=== PATIENT | female | born 1985 | race Two or more races ===

== ENCOUNTER 2023-12-31 13:07 | Emergency (ER) | payer OTHER, SELFPAY ==
--- NOTE | ~2023-12-31 | US_ITS ---
EXAMINATION: US PELVIS CLINICAL INFORMATION: Pain left lower quadrant COMPARISON: None available. TECHNIQUE: Ultrasound of the pelvis is performed using both transabdominal and transvaginal transducers along with Doppler. Transvaginal imaging is performed due to inadequate visualization transabdominally. FINDINGS: Uterus: The uterus is anteverted and measures 6 x 3 x 3.4 cm. The double wall endometrial thickness is 0.7 mm. The uterus is smooth in contour and has normal myometrial echogenicity. No visible fibroid. Adnexa: Both ovaries are visualized. There is normal color flow to the adnexa. There is no active torsion. There is no pelvic ascites or fluid collection. Right ovary measures 2 mL in volume and left ovary measures 1 mL in volume. Trace physiologic free fluid. US/US pelvic ovarian doppler IMPRESSION: Unremarkable pelvic ultrasound. No evidence of any adnexal mass or active torsion. Electronically signed by: Gorge Austin MD 12/31/2023 03:40 PM [facility]
--- NOTE | ~2023-12-31 | US_ITS ---
EXAMINATION: US PELVIS CLINICAL INFORMATION: Pain left lower quadrant COMPARISON: None available. TECHNIQUE: Ultrasound of the pelvis is performed using both transabdominal and transvaginal transducers along with Doppler. Transvaginal imaging is performed due to inadequate visualization transabdominally. FINDINGS: Uterus: The uterus is anteverted and measures 6 x 3 x 3.4 cm. The double wall endometrial thickness is 0.7 mm. The uterus is smooth in contour and has normal myometrial echogenicity. No visible fibroid. Adnexa: Both ovaries are visualized. There is normal color flow to the adnexa. There is no active torsion. There is no pelvic ascites or fluid collection. Right ovary measures 2 mL in volume and left ovary measures 1 mL in volume. Trace physiologic free fluid. US/US pelvic and transvaginal IMPRESSION: Unremarkable pelvic ultrasound. No evidence of any adnexal mass or active torsion. Electronically signed by: Gorge Austin MD 12/31/2023 03:40 PM [facility]
[2023-12-31 13:29] VITALS: BP 147/80; PULSE 91; RESP 16; TEMP 36.3; O2SAT 99; BMI 34.4
--- NOTE | 2023-12-31 13:30 | ED.GENADULT ---
HPI - General Adult General Chief complaint: Abdominal Pain Stated complaint: quest cyst Time Seen by Provider: 12/31/23 19:09 Related Data Allergies Allergy/AdvReac Type Severity Reaction Status Date / Time Penicillins Allergy Rash Verified 12/31/23 13:34 REPLACED BY [facility] Social History Social History Advance Directives: No Advance Directives Information Provided: No Do you have a plan to hurt others: No Plan Physical Exam ED Vital Signs: Vital Signs - 24 hr 12/31/23 13:29 12/31/23 19:49 Temperature 97.4 F 98.1 F Pulse Rate 91 108 H Respiratory Rate 16 20 Blood Pressure 147/80 H 126/87 Pulse Oximetry 99 99 Oxygen Delivery Method Room Air Room Air BMI result Body Mass Index 34.4 Course Course Course Narrative: This is a rapid medical exam performed by Chet Solomon NP: Additional HPI, ROS, PE not included below will be deferred to primary provider. Patient is a 38-year-old female presenting to the ED with complaint of left lower abdominal pain which she describes as a twisting sensation. Pain has been going on for several years and seems to worsen around menses. Yesterday was diaphoretic, had to change shirt twice, difficulty sleeping/urinating. Just started period. Plan: labs, ua, u/s Medical Decision Making Lab Data 12/31/23 14:07 12/31/23 14:07 Labs: Lab Results 12/31/23 12/31/23 12/31/23 Range/Units 14:07 19:25 20:00 WBC 13.8 H (4.8-10.8) X10*3/uL RBC 4.84 (4.20-5.50) X10*6/uL Hgb 13.9 (12.0-16.0) g/dl Hct 40.6 (37.0-47.0) % MCV 83.9 (80.0-98.0) fL MCH 28.7 (27.0-33.0) pg MCHC 34.2 (31.0-35.0) g/dl RDW 13.5 (11.0-16.0) % Plt Count 300 (160-400) X10*3/uL MPV 10.6 (9.4-12.3) fL Immature Gran % (Auto) 0.3 (0.0-0.4) % Neut % (Auto) 73.5 H (45-73) % Lymph % (Auto) 19.3 L (20-40) % [place] % (Auto) 5.8 (2-11) % Eos % (Auto) 0.7 (0-4) % Baso % (Auto) 0.4 (0-2) % Lymph # (Auto) 2.7 (1.2-4.9) X10*3/uL [place] # (Auto) 0.8 (0.1-1.2) X10*3/uL Eos # (Auto) 0.1 (0.0-0.4) X10*3/uL Baso # (Auto) 0.1 (0.0-0.2) X10*3/uL Abs Immat Gran (auto) 0.04 H (0.00-0.03) X10*3/uL Absolute Neuts (auto) 10.2 H (2.0-8.3) x10*3/uL Absolute Nucleated RBC 0.000 (0.0-0.012) X10*3/uL Nucleated RBC % (auto) 0.0 (0.0-0.2) /100WBC Sodium 136 (135-145) mmol/L Potassium 3.4 (3.3-5.1) mmol/L Chloride 105 (96-108) mmol/L Carbon Dioxide 22 (22-29) mmol/L Anion Gap 12 (12-20) BUN 11 (9-16) mg/dL Creatinine 0.83 (0.5-1.4) mg/dL Estim Creat Clear Calc 98.3 Estimated GFR > 60 Random Glucose 135 H (60-115) mg/dL Calcium 9.3 (8.4-10.2) mg/dL Total Bilirubin 1.5 H (0.0-1.0) mg/dL AST 17 (5-31) U/L ALT 12 (0-31) U/L Alkaline Phosphatase 89 (39-117) U/L Total Protein 8.1 H (6.5-8.0) g/dL Albumin 4.3 (3.5-5.0) g/dL TSH 1.62 (0.32-4.0) uIU/mL Beta HCG, Quant < 2 mIU/mL Urine Color Yellow Urine Appearance Clear Urine pH 6.0 (5.0-9.0) Ur Specific Reeder 1.025 (1.005-1.025) Urine Protein 30 (1+) H (Neg-Trace) mg/dL Urine Glucose (UA) Negative (Negative) mg/dL Urine Ketones Negative (Negative) mg/dL Urine Blood Large (3+) H (Negative) Urine Nitrite Negative (Negative) Ur Leukocyte Esterase Small (1+) H (Negative) Urine RBC >20 H (0-2) /HPF Urine WBC 0-5 (0-5) /HPF Ur Squamous Epith Cells 3-5 (0-2) /HPF Urine Bacteria Trace (None Seen) Hyaline Casts 0-2 (0-2) /LPF Influenza Type A (PCR) NEGATIVE (Negative) Influenza Type B (PCR) NEGATIVE (Negative) RSV RNA Qual (PCR) NEGATIVE (Negative) SARS-CoV-2 RNA (RT-PCR) NEGATIVE (Negative) Discharge Plan Discharge Clinical Impression: Menstrual cramp Patient Disposition: Home, Self-Care Instructions: Dysmenorrhea (ED) Referrals: Evens Jeffries DO [Primary Care Provider] - 01/03/24 Print Language: Liberian
[2023-12-31 14:12] LABS: MANUAL DIFF FLAG NO
[2023-12-31 14:13] LABS: Basophils Absolute Auto 0.1 X10*3/uL (0.0-0.2); Basophils Percent Auto 0.4 % (0-2); Eosinophils Absolute Auto 0.1 X10*3/uL (0.0-0.4); Eosinophils Percent Auto 0.7 % (0-4); Hematocrit 40.6 % (37.0-47.0); Hemoglobin 13.9 g/dl (12.0-16.0); Imm Gran Abs Auto 0.04 X10*3/uL (0.00-0.03); Imm Gran Pct Auto 0.3 % (0.0-0.4); Lymphocytes Absolute Auto 2.7 X10*3/uL (1.2-4.9); Lymphocytes Percent Auto 19.3 % (20-40); Mean Corpuscular HGB Conc 34.2 g/dl (31.0-35.0); Mean Corpuscular Hemoglobin 28.7 pg (27.0-33.0); Mean Corpuscular Volume 83.9 fL (80.0-98.0); Mean Platelet Volume 10.6 fL (9.4-12.3); Monocytes Absolute Auto 0.8 X10*3/uL (0.1-1.2); Monocytes Percent Auto 5.8 % (2-11); Neutrophils Absolute Auto 10.2 x10*3/uL (2.0-8.3); Neutrophils Percent Auto 73.5 % (45-73); Platelet Count 300 X10*3/uL (160-400); Red Blood Count 4.84 X10*6/uL (4.20-5.50); Red Cell Distribution Width 13.5 % (11.0-16.0); White Blood Count 13.8 X10*3/uL (4.8-10.8)
[2023-12-31 14:45] LABS: Alanine Aminotransferase 12 U/L (0-31); Albumin Level 4.3 g/dL (3.5-5.0); Alkaline Phosphatase 89 U/L (39-117); Anion Gap 12 (12-20); Aspartate Amino Transferase 17 U/L (5-31); Bilirubin Total 1.5 mg/dL (0.0-1.0); Blood Urea Nitrogen 11 mg/dL (9-16); Calcium 9.3 mg/dL (8.4-10.2); Carbon Dioxide 22 mmol/L (22-29); Chloride 105 mmol/L (96-108); Creatinine Clr Calc Pharmacy 98.3; Estimated Glomerular Filt Rate > 60; Glucose Random 135 mg/dL (60-115); Potassium 3.4 mmol/L (3.3-5.1); Sodium 136 mmol/L (135-145); Total Protein 8.1 g/dL (6.5-8.0)
[2023-12-31 14:49] LABS: HCG Quantitative < 2 mIU/mL
--- NOTE | 2023-12-31 19:33 | PC.NURSE ---
Assumed care of pt at 1915. Urine sample collected and sent down to lab.
[2023-12-31 19:35] LABS: Appearance Urine Clear; Color Urine Yellow; Glucose Urine UA Negative (Negative); Leukocyte Esterase Urine Small (1+) (Negative); Nitrite Urine Negative (Negative); Specific Gravity - Urine 1.025 (1.005-1.025); UMIC TRIGGER UACC YES; Urine Blood Large (3+) (Negative); Urine Ketones Negative (Negative); Urine Protein 30 (1+) mg/dL (Neg-Trace)
[2023-12-31 19:49] VITALS: BP 126/87; PULSE 108; RESP 20; TEMP 36.7; O2SAT 99
[2023-12-31 19:53] LABS: Bacteria Urine Trace (None Seen); Hyaline Casts Urine 0-2 /LPF (0-2); RBC Urine >20 /HPF (0-2); UACC Culture Trigger YES; WBC Urine 0-5 /HPF (0-5)
[2023-12-31 20:04] LABS: Thyroid Stimulating Hormone 1.62 uIU/mL (0.32-4.0)
--- OUTSIDE RECORDS SUMMARY | 2023-12-31 20:12 | XMS_ITS | Continuity of Care Document ---
Author Organization [facility] Address [address] [place] [address]- Care Team Providers Care Sales Engineering Manager Name Role Phone Lela Nails MD Primary Care Physician Encounter [facility] [place] Date(s): 10/13/20 - 10/20/20 [facility] [address] [place] [address]- Encounter Diagnosis Cough in adult patient(Discharge Diagnosis) - 10/13/20 Attending Physician: Lela Nails MD Allergies, Adverse Reactions, Alerts Substance Reaction Severity Status penicillin 1 Active 1rash Immunizations Given and Recorded Vaccine Date Status Refusal Reason SARS-CoV-2 (COVID-19) mRNA BNT-162b2 vac 07/15/20 Given SARS-CoV-2 (COVID-19) mRNA BNT-162b2 vac 06/24/20 Given influenza virus vaccine, inactivated 12/18/19 Oj rded Medications Azithromycin 5 Day Dose Pack 250 mg oral tablet 1 pack/packet, By Mouth, Once, # 6 tablet, 0 Refills, Soft Stop, 09/18/20 14:39:00 EDT, [facility], [facility], Partial fill upon patient request if the prescription is for a schedule II opioid drug., 163, cm, 09/18/20 14:12:00 EDT, Height, 85.... Start Date: 09/18/20 Status: Ordered benzonatate 100 mg oral capsule 1 capsule = 100 mg, By Mouth, 3 times a day, for 10 days, # 30 capsule, 0 Refills, Acute 10/23/20 8:09:00 EDT, 10/13/20 8:09:00 EDT, Capsule, [facility], Partial fill upon patient request if the prescription is for a schedule II opioid drug... Start Date: 10/13/20 Stop Date: 10/23/20 Status: Ordered buPROPion 150 mg/24 hours (XL) oral tablet, extended release 1 tablet = 150 mg, By Mouth, Every 24 hours, # 90 tablet, 1 Refills, Maintenance, 10/13/20 7:42:00 EDT, ER Tablet, [id number], 1 tablet By Mouth Every 24 hours,x90 days, 163, cm, 09/18/20 14:12:00 EDT, Height, 85.2, kg, 09/18/20 14:12:00 ED... Start Date: 10/13/20 Stop Date: 04/11/21 Status: Ordered Diflucan 150 mg oral tablet 1 tablet = 150 mg, By Mouth, Once, May repeat in 3 days if continued symptoms, # 2 tablet, 0 Refills, Soft Stop, 08/17/20 19:02:00 EDT, Tablet, [facility]/pharmacy #[id number], Partial fill upon patient request if the prescription is for a schedule II opioid drug.... Start Date: 08/17/20 Status: Ordered Vital-D oral tablet 1 tablet, By Mouth, Daily, # 100 tablet, 0 Refills, Maintenance, 09/14/19 9:40:00 EDT, Tablet Start Date: 09/14/19 Status: Ordered ZyrTEC 10 mg oral tablet 1 tablet = 10 mg, By Mouth, Daily, # 30 tablet, 0 Refills, Maintenance, 05/25/19 8:51:00 EDT Start Date: 05/25/19 Status: Ordered Problem List Condition Effective Dates Status Health Status Inform ant ADHD (attention deficit hype ractivity disorder), inattentive type(Confirmed) Active Constipation(Confirmed) Active Vitamin D insufficiency(Confirmed) Active Health care maintenance(Confirmed) Active Diagnosis Diagnosis Type Effective Dates Health Status Cl inical Service Informant Cough in adult patient Discharge Diagnosis 10/13/20 Vital Signs Most recent to oldest [Reference Range]: 1 Height 163 cm (10/13/20 7:38 AM) Social History Social History Type Response Smoking Status Never (less than 100 in lifetime) entered on: 05/25/19 Sex
--- OUTSIDE RECORDS SUMMARY | 2023-12-31 20:12 | XMS_ITS | Continuity of Care Document ---
Author Organization [facility] Address [address] [place] [address]- Care Team Providers Care Perfumer Name Role Phone Evens Jeffries DO Primary Care Physician [phone] Encounter [facility] [place] Date(s): 06/07/22 - 07/07/22 [facility] [address] [place] [address]- Allergies, Adverse Reactions, Alerts Substance Reaction Severity Status penicillin 1 Active 1rash Immunizations Given and Recorded Vaccine Date Status Refusal Reason influenza virus vaccine, inactivated 12/15/21 Oj rded influenza virus vaccine, inactivated 03/01/21 Oj rded influenza virus vaccine, inactivated 12/18/19 Oj rded SARS-CoV-2 (COVID-19) mRNA BNT-162b2 vac 07/15/20 Given SARS-CoV-2 (COVID-19) mRNA BNT-162b2 vac 06/24/20 Given Medications buPROPion 300 mg/24 hours (XL) oral tablet, extended release See Instructions, TAKE 1 TABLET BY MOUTH ONCE DAILY- TAKE WITH 150MG TABLET FOR A DAILY DOSE OF 450MG, # 30 tablet, 0 Refills, Maintenance, 07/01/22 21:21:00 EDT, [id number], 163, cm, 06/19/22 8:51:00 EDT, Height, 85.2, kg, 09/18/20 14:12:0... Start Date: 07/01/22 Status: Ordered Enskyce 0.15 mg-0.03 mg oral tablet 1 tablet, By Mouth, Daily, # 28 tablet, 0 Refills, Maintenance, 09/28/21 11:15:00 EDT, Tablet, Partial fill upon patient request if the prescription is for a schedule II opioid drug. Start Date: 09/28/21 Status: Ordered escitalopram 10 mg oral tablet 1 tablet = 10 mg, By Mouth, Daily, # 90 tablet, 0 Refills, Maintenance, 06/19/22 9:14:00 EDT, Tablet, [facility], Partial fill upon patient request if the prescription is for a schedule IIopioid drug., 163, cm, 06/19/22 8:51:00 EDT, Height... Start Date: 06/19/22 Status: Ordered Vital-D oral tablet 1 tablet, By Mouth, Daily, # 100 tablet, 0 Refills, Maintenance, 09/14/19 9:40:00 EDT, Tablet Start Date: 09/14/19 Status: Ordered ZyrTEC 10 mg oral tablet 1 tablet = 10 mg, By Mouth, Daily, # 30 tablet, 0 Refills, Maintenance, 05/25/19 8:51:00 EDT Start Date: 05/25/19 Status: Ordered Problem List Condition Confirmation Course Effective Dates Status H ealth Status Informant Allergic rhinitis Confirmed 04/24/20 Active Anxiety Confirmed Active ADHD (attention deficit hyperactivity disorder), inattentive type Confirmed Active Constipation Confirmed Active Vitamin D insufficiency Confirmed Active Gastroesophageal reflux disease Confirmed Active Irritable bowel syndrome characterized by constipation Confirmed Active Mixed anxiety and depressive disorder Confirmed 04/24/20 Active Obese class I Confirmed Active Health care maintenance Confirmed Active Recurrent genital herpes simplex Confirmed 04/24/20 Active MDD (major depressive disorder), recurrent episode, moderate Confirmed Active Seasonal allergy Confirmed Active 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
--- OUTSIDE RECORDS SUMMARY | 2023-12-31 20:12 | XMS_ITS | Continuity of Care Document ---
Author Organization [facility] Address [address] [place] [address]- Care Team Providers Care Portable Track Line Marker Name Role Phone Evens Jeffries DO Primary Care Physician Encounter [facility] [place] Date(s): 07/14/23 - 08/13/23 [facility] [address] [place] [address]- Allergies, Adverse Reactions, Alerts Substance Reaction Severity Status penicillin 1 Active 1rash Immunizations Given and Recorded Vaccine Date Status Refusal Reason tetanus/diphtheria/pertussis, acel(Tdap) 07/25/23 Given influenza virus vaccine, inactivated 12/15/21 Oj rded influenza virus vaccine, inactivated 03/01/21 Oj rded influenza virus vaccine, inactivated 12/18/19 Oj rded SARS-CoV-2 (COVID-19) mRNA BNT-162b2 vac 07/15/20 Given SARS-CoV-2 (COVID-19) mRNA BNT-162b2 vac 06/24/20 Given Medications Enskyce 0.15 mg-0.03 mg oral tablet 1 tablet, By Mouth, Daily, # 28 tablet, 0 Refills, Maintenance, 09/28/21 11:15:00 EDT, Tablet, Partial fill upon patient request if the prescription is for a schedule II opioid drug. Start Date: 09/28/21 Status: Ordered ZyrTEC 10 mg oral tablet 1 tablet = 10 mg, By Mouth, Daily, # 30 tablet, 0 Refills, Maintenance, 05/25/19 8:51:00 EDT Start Date: 05/25/19 Status: Ordered Problem List Condition Confirmation Course Effective Dates Status H ealth Status Informant Allergic rhinitis Confirmed 04/24/20 Active Gastroesophageal reflux disease Confirmed Active Body aches Confirmed Active Irritable bowel syndrome characterized by constipation Confirmed Active Obese class I Confirmed Active Recurrent genital herpes simplex Confirmed 04/24/20 Active MDD (major depressive disorder), recurrent episode, moderate Confirmed Active Seasonal allergy Confirmed 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 Social History Social History Type Response Smoking Status Never (less than 100 in lifetime) entered on: 05/25/19 Sex Patient Care team information Care Team Personnel Name: Evens Jeffries DO Position: S Physician - Primary Care Member Role: PCP Address: Address: [address] [place] [id number]- [place] Care Team Related Persons Name: TERESSA EDWARDS Address: home [address] [place] [address]
--- OUTSIDE RECORDS SUMMARY | 2023-12-31 20:12 | XMS_ITS | Continuity of Care Document ---
Author Organization [facility] Address [address] [place] [address]- Care Team Providers Care Awake Overnight Monitor Name Role Phone Evens Jeffries DO Primary Care Physician Encounter [facility] [place] Date(s): 08/06/23 - 09/05/23 [facility] [address] [place] [address]- Allergies, Adverse Reactions, Alerts Substance Reaction Severity [...] Primary Care Member Role: PCP Address: Address: [address] [place] [address]- [place] Care Team Related Persons Name: TERESSA EDWARDS Address: home [address] [place] [address]
--- OUTSIDE RECORDS SUMMARY | 2023-12-31 20:12 | XMS_ITS | Continuity of Care Document ---
Author Organization [facility] Address [address] [place] [address]- Care Team Providers Care Assistant Chief Train Dispatcher Name Role Phone Lela Nails MD Primary Care Physician Encounter [facility] Date(s): 10/13/20 - 11/12/20 [facility] [address] [place] [address]- Attending Physician: Admtr, Luc8 Admitting Physician: AdmtrNila Referring Physician: Admtr, Ar8 Allergies, Adverse Reactions, Alerts Substance Reaction Severity [...] Refills, Soft Stop, 09/18/20 14:39:00 EDT, Tablet, [facility], Partial fill upon patient request if the prescription is for a schedule II opioid drug., 163, cm, 09/18/20 14:12:00 EDT, Height, 85.... Start Date: 09/18/20 Status: Ordered buPROPion 150 mg/24 hours (XL) oral tablet, extended release 1 tablet = 150 mg, By Mouth, Every 24 hours, # 90 tablet, 1 Refills, Maintenance, 10/13/20 7:42:00 EDT, ER Tablet, [facility], 1 tablet By Mouth Every 24 hours,x90 days, 163, cm, 09/18/20 14:12:00 EDT, Height, 85.2, kg, 09/18/20 14:12:00 ED... Start Date: 10/13/20 Stop Date: 04/11/21 Status: Ordered Diflucan 150 mg oral tablet 1 tablet = 150 mg, By Mouth, Once, May repeat in 3 days if continued symptoms, # 2 tablet, 0 Refills, Soft Stop, 08/17/20 19:02:00 EDT, Tablet, [facility]/pharmacy #[id number], Partial fill upon patient request if [...] D insufficiency(Confirmed) Active Health care maintenance(Confirmed) Active Social History Social History Type Response Smoking Status Never (less than 100 in lifetime) entered on: 05/25/19 Sex
--- OUTSIDE RECORDS SUMMARY | 2023-12-31 20:12 | XMS_ITS | Continuity of Care Document ---
Author Organization [facility] Address [address] [place] [address]- Care Team Providers Care Public Relations Account Executive Name Role Phone Lela Nails MD Primary Care Physician Encounter [facility] [place] Date(s): 02/03/20 - 03/04/20 [facility] [address] [place] [address]- Allergies, Adverse Reactions, Alerts Substance Reaction Severity Status penicillin 1 Active 1rash Medications buPROPion 150 mg/24 hours (XL) oral tablet, extended release 1 tablet = 150 mg, By Mouth, Every 24 hours, # 90 tablet, 1 Refills, Maintenance, 02/15/20 11:25:00EST, ER Tablet, [facility], 1 tablet By Mouth Every 24 hours,x90 days Start Date: 02/15/20 Stop Date: 08/13/20 Status: Ordered Vital-D oral tablet 1 tablet, [...]
--- OUTSIDE RECORDS SUMMARY | 2023-12-31 20:12 | XMS_ITS | Continuity of Care Document ---
Author Organization [facility] Address [address] [place] [address]- Care Team Providers Care Intellectual Property Lawyer Name Role Phone Evens Jeffries DO Primary Care Physician Encounter [facility] Date(s): 07/17/22 - 08/16/22 [facility] [address] [place] [address]- Attending Physician: Nila Tiwari Admitting Physician: Nila Tiwari Referring Physician: AdmtrNila Allergies, Adverse Reactions, Alerts Substance Reaction Severity [...] hours (XL) oral tablet, extended release 1 tablet, By Mouth, Daily, # 30 tablet, 0 Refills, Maintenance, 08/07/22 14:13:00 EDT, [facility], 164.8, cm, 07/17/22 13:47:00 EDT, Height, 85.2, kg, 09/18/20 14:12:00 EDT, Dry Weight Start Date: 08/07/22 Status: Ordered Enskyce 0.15 mg-0.03 mg oral [...] 0 Refills, Maintenance, 06/19/22 9:14:00 EDT, Tablet, [facility], Partial fill upon patient request [...] Primary Care Member Role: PCP Address: Address: [address] [place] [address]- Care Team Related Persons Name: TERESSA EDWARDS Address: home [address] [place] [address]
--- OUTSIDE RECORDS SUMMARY | 2023-12-31 20:12 | XMS_ITS | Continuity of Care Document ---
Author Organization [facility] Address [address] [place] [address]- Care Team Providers Care Radiology Scheduler Name Role Phone Jaqui DEAL, Lela Naqvi Primary Care Physician Encounter [facility] [place] [place] Date(s): 11/29/20 - 12/29/20 [facility] [address] [place] [address]- Allergies, Adverse Reactions, Alerts Substance Reaction Severity [...] Refills, Soft Stop, 09/18/20 14:39:00 EDT, Tablet, [facility], Partial fill upon patient request if the prescription is for a schedule II opioid drug., 163, cm, 09/18/20 14:12:00 EDT, Height, 85.... Start Date: 09/18/20 Status: Ordered Bactrim DS 800 mg-160 mg oral tablet 1 tablet, By Mouth, 2 times a day, for 3 days, # 6 tablet, 0 Refills, Acute 01/01/21 15:41:00 EST, 12/29/20 15:41:00 EDT, [facility], Partial fill upon patient request if the prescription is for a schedule II opioid drug., 1 tablet By Mouth... Start Date: 12/29/20 Stop Date: 01/01/21 Status: Ordered buPROPion 150 mg/24 hours (XL) oral tablet, extended release 1 tablet = 150 mg, By Mouth, Every 24 hours, # 90 tablet, 3 Refills, Maintenance, 12/01/20 14:23:00EDT, ER Tablet, [facility], 1 tablet By Mouth Every 24 hours,x90 days, 163, cm, 12/01/2112:49:00 EDT, Height, 85.2, kg, 09/18/20 14:12:00 E... Start Date: 12/01/20 Stop Date: 11/26/21 Status: Ordered Diflucan 150 mg oral tablet 1 tablet = 150 mg, By Mouth, Once, May repeat in 3 days if continued symptoms, # 2 tablet, 0 Refills, Soft Stop, 08/17/20 19:02:00 EDT, Tablet, [facility]/pharmacy #[id number], Partial fill upon patient request if the prescription is for a schedule II opioid drug.... Start Date: 08/17/20 Status: Ordered Junel 03/16 oral tablet 1 tablet, By Mouth, Daily, 0 Refills, Maintenance, 12/01/20 13:51:00 EDT, Partial fill upon patientrequest if the prescription is for a schedule II opioid drug. Start Date: 12/01/20 Status: Ordered Vital-D oral tablet 1 tablet, By Mouth, Daily, # 100 tablet, 0 Refills, Maintenance, 09/14/19 9:40:00 EDT, Tablet Start Date: 09/14/19 Status: Ordered ZyrTEC 10 mg oral tablet 1 tablet = 10 mg, By Mouth, Daily, # 30 tablet, 0 Refills, Maintenance, 05/25/19 8:51:00 EDT Start Date: 05/25/19 Status: Ordered Problem List Condition Effective Dates Status Health Status Inform ant Allergic rhinitis(Confirmed) 04/24/20 Active ADHD (attention deficit hype ractivity disorder), inattentive type(Confirmed) Active Constipation(Confirmed) Active Vitamin D insufficiency(Confirmed) Active Mixed anxiety and depressive disorder(Confirmed) 04/24/20 Active Health care maintenance(Confirmed) Active Recurrent genital herpes simplex(Confirmed) 04/24/20 Active Social History Social History Type Response Smoking Status Never (less than 100 in lifetime) entered on: 05/25/19 Sex
--- OUTSIDE RECORDS SUMMARY | 2023-12-31 20:12 | XMS_ITS | Continuity of Care Document ---
Author Organization [facility] Address [address] [place] [address]- Care Team Providers Care Emergency Room Orderly Name Role Phone Lela Nails MD Primary Care Physician [place] [id number] Date(s): 08/17/20 - 09/16/20 [facility] [address] [place] [address]- Attending Physician: AdmNila soni Admitting Physician: Admtr, Luc8 Referring Physician: Admtr, Ar8 Allergies, Adverse Reactions, Alerts Substance Reaction Severity Status penicillin 1 Active 1rash Immunizations Given and Recorded Vaccine Date Status Refusal Reason SARS-CoV-2 (COVID-19) mRNA BNT-162b2 vac 07/15/20 Given SARS-CoV-2 (COVID-19) mRNA BNT-162b2 vac 06/24/20 Given Medications buPROPion 150 mg/24 hours (XL) oral tablet, extended release 1 tablet = 150 mg, By Mouth, Every 24 hours, # 90 tablet, 1 Refills, Maintenance, 02/15/20 11:25:00EST, ER Tablet, [facility], 1 tablet By Mouth Every 24 hours,x90 days Start Date: 02/15/20 Stop Date: 08/13/20 Status: Ordered Diflucan 150 mg oral tablet 1 tablet = 150 mg, By Mouth, Once, May repeat in 3 days if continued symptoms, # 2 tablet, 0 Refills, Soft Stop, 08/17/20 19:02:00 EDT, Tablet, [facility]/pharmacy #[id number], Partial fill upon patient request if the [...]
--- OUTSIDE RECORDS SUMMARY | 2023-12-31 20:12 | XMS_ITS | Continuity of Care Document ---
Author Organization [facility] Address [address] [place] [address]- Care Team Providers Care Roll Up Operator Name Role Phone Lela Nails MD Primary Care Physician [place] [facility] 05/[place]20 - 06/19/20 [facility] [address] [place] [address]- Allergies, Adverse Reactions, Alerts Substance Reaction Severity Status penicillin 1 Active 1rash Medications buPROPion 150 mg/24 hours (XL) oral tablet, extended release 1 tablet = 150 mg, By Mouth, Every 24 hours, # 90 tablet, 1 Refills, Maintenance, 02/15/20 11:25:00EST, ER Tablet, [facility], 1 tablet By [...]
--- OUTSIDE RECORDS SUMMARY | 2023-12-31 20:12 | XMS_ITS | Continuity of Care Document ---
Author Organization [facility] Address [address] [place] [address]- Care Team Providers Care Bung Dropper Name Role Phone Jaqui DEAL, Lela Naqvi Primary Care Physician Encounter [facility] [place] Date(s): 10/13/19 - 11/12/19 [facility] [address] [place] [address]- [facility] Allergies, Adverse Reactions, Alerts Substance Reaction Severity Status penicillin 1 Active 1rash Medications buPROPion 150 mg/24 hours (XL) oral tablet, extended release 1 tablet = 150 mg, By Mouth, Every 24 hours, # 90 tablet, 1 Refills, Maintenance, 05/25/19 8:49:00 EDT, ER Tablet, [facility], 1 tablet By Mouth Every 24 hours,x90 days Start Date: 05/25/19 Stop Date: 11/21/19 Status: Ordered Vital-D oral tablet 1 tablet, [...]
--- OUTSIDE RECORDS SUMMARY | 2023-12-31 20:12 | XMS_ITS | Continuity of Care Document ---
Author Organization [facility] Address [address] [place] [address]- Care Team Providers Care Access Coordinator Name Role Phone Lela Nails MD Primary Care Physician En[place] [facility] [place] Date(s[place] 12/29/20 - 01/28/21 [facility] [address] [place] [address]- Allergies, Adverse Reactions, Alerts Substance Reaction Severity [...] Refills, Soft Stop, 09/18/20 14:39:00 EDT, Tablet, [id number], Partial fill upon patient request if the prescription is for a schedule II opioid drug., 163, cm, 09/18/20 14:12:00 EDT, Height, 85.... Start Date: 09/18/20 Status: Ordered buPROPion 150 mg/24 hours (XL) oral tablet, extended release 1 tablet = 150 mg, By Mouth, Every 24 hours, # 90 tablet, 3 Refills, Maintenance, 12/01/20 14:23:00EDT, ER Tablet, [facility]278, 1 tablet By Mouth Every 24 hours,x90 days, 163, cm, 12/01/2112:49:00 EDT, Height, 85.2, kg, 09/18/20 14:12:00 E... Start Date: 12/01/20 Stop Date: 11/26/21 Status: Ordered Diflucan 150 mg oral tablet 1 tablet = 150 mg, By Mouth, Once, May repeat in 3 days if continued symptoms, # 2 tablet, 0 Refills, Soft Stop, 08/17/20 19:02:00 EDT, Tablet, [facility]/pharmacy #[id number], Partial fill upon patient request [...]
--- OUTSIDE RECORDS SUMMARY | 2023-12-31 20:12 | XMS_ITS | Continuity of Care Document ---
Author Organization [facility] Address [address] [place] [address]- Care Team Providers Care Pooling Operator Name Role Phone Anjel KWOK, Shakira Herndon Primary Care Physician Encounter [facility] Date(s): 11/15/21 - 12/15/21 [facility] [address] [place] [address]- Allergies, Adverse Reactions, Alerts Substance Reaction Severity Status penicillin 1 Active 1rash Immunizations Given and Recorded Vaccine Date Status Refusal Reason influenza virus vaccine, inactivated 03/01/21 Oj rded influenza virus vaccine, inactivated 12/18/19 Oj rded SARS-CoV-2 (COVID-19) mRNA BNT-162b2 vac 07/15/20 Given SARS-CoV-2 (COVID-19) mRNA BNT-162b2 vac 06/24/20 Given Medications buPROPion 300 mg/24 hours (XL) oral tablet, extended release 1 tablet = 300 mg, By Mouth, Daily, take with 150mg for total of 450mg a day, # 30 tablet, 1 Refills, Maintenance, 11/03/21 16:25:00 EDT, ER Tablet, [id number], Partial fill upon patient request if the prescription is for a schedule II opio... Start Date: 11/03/21 Status: Ordered Enskyce 0.15 mg-0.03 mg oral tablet 1 tablet, By Mouth, Daily, # 28 tablet, 0 Refills, Maintenance, 09/28/21 11:15:00 EDT, Tablet, Partial fill upon patient request if the prescription is for a schedule II opioid drug. Start Date: 09/28/21 Status: Ordered escitalopram 5 mg oral tablet 1 tablet = 5 mg, By Mouth, Daily, # 30 tablet, 1 Refills, Maintenance, 11/23/21 15:16:00 EDT, Tablet, [facility], Partial fill upon patient request if the prescription is for a schedule IIopioid drug., 163, cm, 11/23/21 14:06:00 EDT, Dotty... Start Date: 11/23/21 Status: Ordered Vital-D oral tablet 1 tablet, [...] on: 05/25/19 Sex Patient Care team information Personnel Name: Anjel KWOK, Shakira Herndon Address: Address: [address] [place] [address] [place], [place] [address]
--- OUTSIDE RECORDS SUMMARY | 2023-12-31 20:12 | XMS_ITS | Continuity of Care Document ---
Author Organization [facility] Address [address] [place] [address]- Care Team Providers Care Information Director Name Role Phone Lanre DUNCAN MD, Vincent Lindsay Primary Care Physician [phone] [place] [facility] [place] - 05/17/19 [facility] [address] [place] [address]- [facility] Attending Physician: Nila Tiwari Admitting Physician: Nila Tiwari Referring Physician: AdmtrNila Allergies, Adverse Reactions, Alerts Substance Reaction Severity Status NKA Active Medications ibuprofen 600 mg oral tablet 1 tablet = 600 mg, By Mouth, 4 times a day, PRN Pain, # 12 tablet, 0 Refills, Maintenance, Tablet Start Date: 07/21/09 Status: Ordered Tylox 500 mg-5 mg oral capsule 1 capsule, By Mouth, Every 4 hours, PRN Pain, # 12 tablet, 0 Refills, Maintenance, Capsule Start Date: 07/21/09 Status: Ordered
--- OUTSIDE RECORDS SUMMARY | 2023-12-31 20:12 | XMS_ITS | Continuity of Care Document ---
Author Organization [facility] Address [address] [place] [address]- Care Team Providers Care Button Tufter Name Role Phone Jaqui DEAL, Lela Naqvi Primary Care Physician En[facility] [place] Date(s): 02/16/20 - 03/17/20 [facility] [address] [place] [address]- Allergies, Adverse Reactions, Alerts Substance Reaction Severity Status penicillin 1 Active 1rash Medications buPROPion 150 mg/24 hours (XL) oral tablet, extended release 1 tablet = 150 mg, By Mouth, Every 24 hours, # 90 tablet, 1 Refills, Maintenance, 02/15/20 11:25:00EST, ER Tablet, [facility]278, 1 tablet By [...]
--- OUTSIDE RECORDS SUMMARY | 2023-12-31 20:12 | XMS_ITS | Continuity of Care Document ---
Author Organization [facility] Address [address] [place] [address]- Care Team Providers Care Concrete Engineering Technician Name Role Phone Lela Nails MD Primary Care Physician En[place] [facility] [place] Date(s): 12/29/20 - 01/28/21 [facility] [address] [place] [address]- Attending Physician: Admzachariah, Nila Admitting Physician: AdmtrNila Referring Physician: Admtr, Ar8 [...] Refills, Soft Stop, 09/18/20 14:39:00 EDT, Tablet, [facility], Partial fill upon patient request if the prescription is for a schedule II opioid drug., 163, cm, 09/18/20 14:12:00 EDT, Height, 85.... Start Date: 09/18/20 Status: Ordered buPROPion 150 mg/24 hours (XL) oral tablet, extended release 1 tablet = 150 mg, By Mouth, Every 24 hours, # 90 tablet, 3 Refills, Maintenance, 12/01/20 14:23:00EDT, ER Tablet, [facility], 1 tablet By Mouth Every 24 hours,x90 days, 163, cm, 12/01/2112:49:00 EDT, Height, 85.2, kg, 09/18/20 14:12:00 E... Start Date: 12/01/20 Stop Date: 11/26/21 Status: Ordered Diflucan 150 mg oral tablet 1 tablet = 150 mg, By Mouth, Once, May repeat in 3 days if continued symptoms, # 2 tablet, 0 Refills, Soft Stop, 08/17/20 19:02:00 EDT, Tablet, [facility]/pharmacy #[id number], Partial fill upon patient request if [...]
--- OUTSIDE RECORDS SUMMARY | 2023-12-31 20:12 | XMS_ITS | Continuity of Care Document ---
Author Organization [facility] Address [address] [place] [address]- Care Team Providers Care Celery Tier Name Role Phone Anjel KWOK, Shakira Primary Care Physician [phone] [facility] [place] Date(s): 02/27/22 - 03/29/22 [facility] [address] [place] [address]- Allergies, Adverse Reactions, Alerts Substance Reaction Severity [...] day, # 30 tablet, 1 Refills, Maintenance, 01/16/22 16:40:00 EST, ER Tablet, [id number], Partial fill upon patient request if the prescription is for a schedule II opio... Start Date: 01/16/22 Status: Ordered Enskyce 0.15 mg-0.03 mg oral [...] 1 Refills, Maintenance, 11/23/21 15:16:00 EDT, Tablet, [facility], Partial fill upon patient request if the prescription is for a schedule IIopioid drug., 163, cm, 11/23/21 14:06:00 EDT, [place]... Start Date: 11/23/21 Status: Ordered Vital-D oral [...] Care team information Care Team Personnel Name: Shakira Hobbs NP Position: [facility]O Associate Professional Member Role: PCP Address: Address: [address] [place] [address] [place] [address]- Care Team Related Persons Name: TERESSA EDWARDS Address: home [address] [place] [address]
--- OUTSIDE RECORDS SUMMARY | 2023-12-31 20:12 | XMS_ITS | Continuity of Care Document ---
Author Organization [facility] Address [address] [place] [address]- Care Team Providers Care Tool Grinding Machine Operator Name Role Phone Evens Jeffries DO Primary Care Physician [phone] En[place] [facility] [place] Date(s): 10/22/23 - 11/21/23 [facility] [address] [place] [address]- Allergies, Adverse Reactions, Alerts Substance Reaction Severity Status penicillin 1 Active 1rash Immunizations Given and Recorded Vaccine Date Status Refusal Reason tetanus/diphtheria/pertussis, acel(Tdap) 07/25/23 Given Meningococcal Conjugate Vaccine 06/11/23 Recorded influenza virus vaccine, inactivated 12/15/21 Oj rded influenza virus vaccine, inactivated 03/01/21 Oj rded influenza virus vaccine, inactivated 12/18/19 Oj rded SARS-CoV-2 (COVID-19) mRNA BNT-162b2 vac 07/15/20 Given SARS-CoV-2 (COVID-19) mRNA BNT-162b2 vac 06/24/20 Given Hepatitis A Vaccine (oldterm) 06/10/06 Recorded Typhoid Vaccine, Inactivated 05/22/06 Recorded Measles/Mumps/Rubella Virus Vaccine 10/15/01 Recor ded Measles/Mumps/Rubella Virus Vaccine 02/10/85 Recor ded Hepatitis B Vaccine (old term) 07/26/97 Recorded Hepatitis B Vaccine (old term) 08/25/96 Recorded Hepatitis B Vaccine (old term) 07/26/96 Recorded Medications Enskyce 0.15 mg-0.03 mg oral tablet [...] Primary Care Member Role: PCP Address: Address: [address] [place] [address]- Care Team Related Persons Name: TERESSA EDWARDS Address: home [address] [place] [address]
--- OUTSIDE RECORDS SUMMARY | 2023-12-31 20:12 | XMS_ITS | Continuity of Care Document ---
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/19 Vitamin D insufficiency(Discharge Diagnosis) - 05/25/19 Constipation(Discharge Diagnosis) - 05/25/19 Attending Physician: Lela Nails MD Allergies, Adverse Reactions, Alerts Substance Reaction Severity Status penicillin 1 Active 1rash Medications buPROPion 150 mg/24 hours (XL) oral tablet, extended release 1 tablet = 150 mg, By Mouth, Every 24 hours, # 90 tablet, 1 Refills, Maintenance, 05/25/19 8:49:00 EDT, ER Tablet, [facility] 5270, 1 tablet By Mouth Every 24 hours,x90 days Start Date: 05/25/19 Stop Date: 11/21/19 Status: Ordered ZyrTEC 10 mg oral tablet [...] Diagnosis Diagnosis Type Effective Dates Health Status Clinical Service Informant Health care maintenance Discharge Diagnosis 05/25/19 ADHD (attention deficit hyperactivity disorder), inattentive type Discharge Diagnosis 05/25/19 Vitamin D insufficiency Discharge Diagnosis 05/25/19 Constipation Discharge Diagnosis 05/25/19 Social History Social History Type Response Smoking Status Never (less than 100 in lifetime) entered on: 05/25/19 Sex
--- OUTSIDE RECORDS SUMMARY | 2023-12-31 20:12 | XMS_ITS | Continuity of Care Document ---
Author Organization [facility] Address [address] [place] [address]- Care Team Providers Care Part Time Name Role Phone Leal Nails MD Primary Care Physician En[place] [facility] [place] Date(s): 12/29/20 - 01/05/21 [facility] [address] [place] [address]- Encounter Diagnosis UTI symptoms(Discharge Diagnosis) - 12/29/20 Attending Physician: Anjel KWOK, Shakira Naqvi Allergies, Adverse Reactions, Alerts Substance Reaction Severity [...] Refills, Soft Stop, 09/18/20 14:39:00 EDT, Tablet, [facility], Partial fill upon patient request if the prescription is for a schedule II opioid drug., 163, cm, 09/18/20 14:12:00 EDT, Height, 85.... Start Date: 09/18/20 Status: Ordered buPROPion 150 mg/24 hours (XL) oral tablet, extended release 1 tablet = 150 mg, By Mouth, Every 24 hours, # 90 tablet, 3 Refills, Maintenance, 12/01/20 14:23:00EDT, ER Tablet, [facility], 1 tablet By Mouth Every 24 hours,x90 days, 163, cm, 12/01/2112:49:00 EDT, Height, 85.2, kg, 09/18/20 14:12:00 E... Start Date: 12/01/20 Stop Date: 11/26/21 Status: Ordered Diflucan 150 mg oral tablet 1 tablet = 150 mg, By Mouth, Once, May repeat in 3 days if continued symptoms, # 2 tablet, 0 Refills, Soft Stop, 08/17/20 19:02:00 EDT, Tablet, [facility]/pharmacy #[id number], Partial fill upon patient request [...] Active Recurrent genital herpes simplex(Confirmed) 04/24/20 Active Diagnosis Diagnosis Type Effective Dates Health Status Cl inical Service Informant UTI symptoms Discharge Diagnosis 12/29/20 Social History Social History Type Response Smoking Status Never (less than 100 in lifetime) entered on: 05/25/19 Sex
--- OUTSIDE RECORDS SUMMARY | 2023-12-31 20:12 | XMS_ITS | Continuity of Care Document ---
Author Organization [facility] Address [address] [place] [address]- Care Team Providers Care White Sidewall Tire Buffer Name Role Phone Jaqui DEAL, Lela Naqvi Primary Care Physician En[place] [facility] [place] Date(s): 09/24/19 - 10/24/19 [facility] [address] [place] [address]- [facility] Allergies, Adverse Reactions, Alerts Substance Reaction Severity Status penicillin 1 Active 1rash Medications buPROPion 150 mg/24 hours (XL) oral tablet, extended release 1 tablet = 150 mg, By Mouth, Every 24 hours, # 90 tablet, 1 Refills, Maintenance, 05/25/19 8:49:00 EDT, ER Tablet, [facility] [...]
--- OUTSIDE RECORDS SUMMARY | 2023-12-31 20:12 | XMS_ITS | Continuity of Care Document ---
Author Organization [facility] Address [address] [place] [address]- Care Team Providers Care Kettle Tender Name Role Phone Evens Jeffries DO Primary Care Physician [place] [facility] [place] 04/26/22 - 05/26/[address] [facility] [address] [place] [address]- Allergies, Adverse Reactions, Alerts Substance Reaction Severity [...] day, # 30 tablet, 1 Refills, Maintenance, 04/24/22 13:36:00 EST, ER Tablet, [facility]60, Partial fill upon patient request if the prescription is for a schedule II opio... Start Date: 04/24/22 Status: Ordered Enskyce 0.15 mg-0.03 mg oral [...] 1 Refills, Maintenance, 11/23/21 15:16:00 EDT, Tablet, [facility] 5278, Partial fill upon patient [...] Care Physician Member Role: PCP Address: Address: [address] [place] [address] Care Team Related Persons Name: TERESSA EDWARDS Address: home [address] [place] [address]
--- OUTSIDE RECORDS SUMMARY | 2023-12-31 20:12 | XMS_ITS | Continuity of Care Document ---
Author Organization [facility] Address [address] [place] [address]- Care Team Providers Care Community Development Officer Name Role Phone Lela Nails MD Primary Care Physician Encounter [facility] Date(s): 02/04/20 - 02/11/20 [facility] [address] [place] [address]- Encounter Diagnosis COVID-19 virus detected(Discharge Diagnosis) - 02/04/20 Attending Physician: Michaela Reich MD Allergies, Adverse Reactions, Alerts Substance Reaction Severity Status penicillin 1 Active 1rash Medications buPROPion 150 mg/24 hours (XL) oral tablet, extended release 1 tablet = 150 mg, By Mouth, Every 24 hours, # 90 tablet, 1 Refills, Maintenance, 05/25/19 8:49:00 EDT, ER Tablet, [facility] 9503, 1 tablet By Mouth Every 24 hours,x90 [...] Dates Health Status Cl inical Service Informant COVID-19 virus detected Discharge Diagnosis 02/04/20 Social History Social History Type Response Smoking Status Never (less than 100 in lifetime) entered on: 05/25/19 Sex
--- OUTSIDE RECORDS SUMMARY | 2023-12-31 20:12 | XMS_ITS | Continuity of Care Document ---
Author Organization [facility] Address [address] [place] [address]- Care Team Providers Care Chemist Enzymes Name Role Phone Lela Nails MD Primary Care Physician En[id number] Date(s): 09/18/20 - 10/18/20 [facility] [address] [place] [address]- Attending Physician: AdmNila soni Admitting Physician: Admtr, Ar8 Referring Physician: Admtr, Ar8 Allergies, Adverse Reactions, [...] Refills, Soft Stop, 09/18/20 14:39:00 EDT, Tablet, [facility], Partial fill upon patient request if the prescription is for a schedule II opioid drug., 163, cm, 09/18/20 14:12:00 EDT, Height, 85.... Start Date: 09/18/20 Status: Ordered benzonatate 100 mg oral capsule 1 capsule = 100 mg, By Mouth, 3 times a day, for 10 days, # 30 capsule, 0 Refills, Acute 10/23/20 8:09:00 EDT, 10/13/20 8:09:00 EDT, Capsule, [facility], Partial fill upon patient request [...] Refills, Soft Stop, 08/17/20 19:02:00 EDT, Tablet, [facility]/pharmacy #[id number], Partial fill upon patient request if [...]
--- OUTSIDE RECORDS SUMMARY | 2023-12-31 20:12 | XMS_ITS | Continuity of Care Document ---
Author Organization [facility] Address [address] [place] [address]- Care Team Providers Care Perinatal Tech Name Role Phone Evens Jeffries DO Primary Care Physician [phone] [place] [facility] [place] 07/12/23 - 08/11/23 [facility] [address] [place] [address]- Allergies, Adverse Reactions, Alerts Substance Reaction Severity [...] Primary Care Member Role: PCP Address: Address: [address] [place] [address]- [place] Care Team Related Persons Name: TERESSA EDWARDS Address: home [address] [place] [address]
--- OUTSIDE RECORDS SUMMARY | 2023-12-31 20:13 | XMS_ITS | Continuity of Care Document ---
Author Organization [facility] Address [address] [place] [address]- Care Team Providers Care Imitation Marble Mechanic Name Role Phone Evens Jeffries DO Primary Care Physician [phone] [place] [facility] [place] 10/29/23 - 11/28/23 [facility] [address] [place] [address]- Allergies, Adverse Reactions, Alerts Substance Reaction Severity [...] Primary Care Member Role: PCP Address: Address: [address] [place] [address]- Care Team Related Persons Name: TERESSA EDWARDS Address: home [address] [place] [address]
--- OUTSIDE RECORDS SUMMARY | 2023-12-31 20:13 | XMS_ITS | Continuity of Care Document ---
Author Organization [facility] Address [address] [place] [address]- Care Team Providers Care Demurrage Agent Name Role Phone Evens Jeffries DO Primary Care Physician En[place] [facility] [place] Date(s): 07/26/23 - 08/25/23 [facility] [address] [place] [address]- Attending Physician: Admtr, Luc8 Admitting Physician: AdmtrLuc8 Referring Physician: Admtr, Ar8 Allergies, Adverse Reactions, [...] Team Personnel Name: Evens Jeffries DO Position: [facility] Physician - Primary Care Member Role: PCP Address: Address: [address] [place] [address]- Care Team Related Persons Name: TERESSA EDWARDS Address: home [address] [place] [address]
--- OUTSIDE RECORDS SUMMARY | 2023-12-31 20:13 | XMS_ITS | Continuity of Care Document ---
Author Organization [facility] Address [address] [place] [address]- Care Team Providers Care Manager Discovery Name Role Phone Lela Nails MD Primary Care Physician [place] [facility] [id number] Date(s): 09/18/20 - 09/25/20 [facility] [address] [place] [address]- Encounter Diagnosis Acute sinusitis(Discharge Diagnosis) - 09/18/20 Attending Physician: Camilo Hitchcock MD Referring Physician: Lela Nails MD Allergies, Adverse Reactions, Alerts Substance Reaction Severity Status penicillin 1 Active 1rash Immunizations Given and Recorded Vaccine Date Status Refusal Reason SARS-CoV-2 (COVID-19) mRNA BNT-162b2 vac 07/15/20 Given SARS-CoV-2 (COVID-19) mRNA BNT-162b2 vac 06/24/20 Given Medications Azithromycin 5 Day Dose Pack 250 mg oral tablet 1 pack/packet, By Mouth, Once, # 6 tablet, 0 Refills, Soft Stop, 09/18/20 14:39:00 EDT, Tablet, [facility], Partial fill upon patient request if the prescription is for a schedule II opioid drug., 163, cm, 09/18/20 14:12:00 EDT, Height, 85.... Start Date: 09/18/20 Status: Ordered buPROPion 150 mg/24 hours (XL) oral tablet, extended release 1 tablet = 150 mg, By Mouth, Every 24 hours, # 90 tablet, 1 Refills, Maintenance, 02/15/20 11:25:00EST, ER Tablet, [facility], 1 tablet By Mouth Every 24 hours,x90 days Start Date: 02/15/20 Stop Date: 08/13/20 Status: Ordered Diflucan 150 mg oral tablet 1 tablet = 150 mg, By Mouth, Once, May repeat in 3 days if continued symptoms, # 2 tablet, 0 Refills, Soft Stop, 08/17/20 19:02:00 EDT, Tablet, [facility]/pharmacy #[id number], Partial fill upon patient request if the [...] Dates Health Status Cl inical Service Informant Acute sinusitis Discharge Diagnosis 09/18/20 Vital Signs Most recent to oldest [Reference Range]: 1 Height 163 cm (09/18/20 2:12 PM) Weight 85.2 kg (09/18/20 2:12 PM) Oxygen Saturation [94-100 %] 100 % (09/18/20 2:12 PM) Pulse Rate [55-90 bpm] 77 bpm (09/18/20 2:12 PM) Body Mass Index [18.5-24.99] 32.07 *>HHI* (09/18/20 2:12 PM) Blood Pressure [90-138/55-84 mm Hg] 119/ 83mm Hg (09/18/20 2:12 PM) Temperature [96.8-100.4 DegF] 98.3 DegF (09/18/20 2:12 PM) Mode of Delivery (Oxygen) Room air (09/18/20 2:12 PM) Blood pressure sites Arm, right (09/18/20 2:12 PM) Temperature Route Temporal (09/18/20 2:12 PM) Dry Weight 85.2 kg (09/18/20 2:12 PM) Weight Obtained Via Standing scale (09/18/20 2:12 PM) Dry Weight Obtained Via Standing scale (09/18/20 2:12 PM) Social History Social History Type Response Smoking Status Never (less than 100 in lifetime) entered on: 05/25/19 Sex
--- OUTSIDE RECORDS SUMMARY | 2023-12-31 20:13 | XMS_ITS | Continuity of Care Document ---
Author Organization [facility] Address [address] [place] [address]- Care Team Providers Care Carpet Sewing Machine Operator Name Role Phone Anjel KWOK, Shakira Naqvi Primary Care Physician [place] [facility] [place] 07/05/21 - 08/04/21 [facility] [address] [place] [address]- Allergies, Adverse Reactions, Alerts Substance Reaction Severity [...] Refills, Soft Stop, 09/18/20 14:39:00 EDT, Tablet, [facility], Partial fill upon patient request if the prescription is for a schedule II opioid drug., 163, cm, 09/18/20 14:12:00 EDT, Height, 85.... Start Date: 09/18/20 Status: Ordered buPROPion 150 mg/24 hours (XL) oral tablet, extended release 1 tablet = 150 mg, By Mouth, Every 24 hours, # 90 tablet, 3 Refills, Maintenance, 12/01/20 14:23:00EDT, ER Tablet, [facility], 1 tablet By Mouth Every 24 hours,x90 days, 163, cm, 12/01/2112:49:00 EDT, Height, 85.2, kg, 09/18/20 14:12:00 E... Start Date: 12/01/20 Stop Date: 11/26/21 Status: Ordered Diflucan 150 mg oral tablet 1 tablet = 150 mg, By Mouth, Once, May repeat in 3 days if continued symptoms, # 2 tablet, 0 Refills, Soft Stop, 08/17/20 19:02:00 EDT, Tablet, [facility]/pharmacy #[id number], Partial fill upon patient request [...]
--- OUTSIDE RECORDS SUMMARY | 2023-12-31 20:13 | XMS_ITS | Continuity of Care Document ---
Author Organization [facility] Address [address] [place] [address]- Care Team Providers Care Business Broker Name Role Phone Anjel KWOK, Shakira Naqvi Primary Care Physician [phone] [place] [facility] [place]21 - 08/27/21 [facility] [address] [place] [address]- Allergies, Adverse Reactions, Alerts Substance Reaction Severity [...] Refills, Soft Stop, 09/18/20 14:39:00 EDT, Tablet, [facility], Partial fill upon patient request if the prescription is for a schedule II opioid drug., 163, cm, 09/18/20 14:12:00 EDT, Height, 85.... Start Date: 09/18/20 Status: Ordered buPROPion 150 mg/24 hours (XL) oral tablet, extended release 1 tablet = 150 mg, By Mouth, Every 24 hours, # 90 tablet, 3 Refills, Maintenance, 12/01/20 14:23:00EDT, ER Tablet, [facility], 1 tablet By Mouth Every 24 hours,x90 days, 163, cm, 12/01/2112:49:00 EDT, Height, 85.2, kg, 09/18/20 14:12:00 E... Start Date: 12/01/20 Stop Date: 11/26/21 Status: Ordered Diflucan 150 mg oral tablet 1 tablet = 150 mg, By Mouth, Once, May repeat in 3 days if continued symptoms, # 2 tablet, 0 Refills, Soft Stop, 08/17/20 19:02:00 EDT, Tablet, [facility]/pharmacy #[id number], Partial fill upon patient request [...]
--- OUTSIDE RECORDS SUMMARY | 2023-12-31 20:13 | XMS_ITS | Continuity of Care Document ---
Author Organization [facility] Address [address] [place] [address]- Care Team Providers Care Coffee Farmer Name Role Phone Lela Nails MD Primary Care Physician [place] [facility] [place] 11[place]/20 - 12/30/20 [facility] [address] [place] [address]- Allergies, Adverse Reactions, Alerts Substance Reaction Severity [...] Refills, Soft Stop, 09/18/20 14:39:00 EDT, Tablet, [facility], Partial fill upon patient request if the prescription is for a schedule II opioid drug., 163, cm, 09/18/20 14:12:00 EDT, Height, 85.... Start Date: 09/18/20 Status: Ordered Bactrim DS 800 mg-160 mg oral tablet 1 tablet, By Mouth, 2 times a day, for 3 days, # 6 tablet, 0 Refills, Acute 01/01/21 15:41:00 EST, 12/29/20 15:41:00 EDT, [facility], Partial fill upon patient request if the prescription is for a schedule II opioid drug., 1 tablet By Mouth... Start Date: 12/29/20 Stop Date: 01/01/21 Status: Ordered buPROPion 150 mg/24 hours (XL) oral tablet, extended release 1 tablet = 150 mg, By Mouth, Every 24 hours, # 90 tablet, 3 Refills, Maintenance, 12/01/20 14:23:00EDT, ER Tablet, [facility], 1 tablet By Mouth Every 24 hours,x90 days, 163, cm, 12/01/2112:49:00 EDT, Height, 85.2, kg, 09/18/20 14:12:00 E... Start Date: 12/01/20 Stop Date: 11/26/21 Status: Ordered Diflucan 150 mg oral tablet 1 tablet = 150 mg, By Mouth, Once, May repeat in 3 days if continued symptoms, # 2 tablet, 0 Refills, Soft Stop, 08/17/20 19:02:00 EDT, Tablet, [facility]/pharmacy #[id number], Partial fill upon patient request [...]
--- OUTSIDE RECORDS SUMMARY | 2023-12-31 20:13 | XMS_ITS | Continuity of Care Document ---
Author Organization [facility] Address [address] [place] [address]- Care Team Providers Care Writer Name Role Phone Jaqui DEAL, Lela Naqvi Primary Care Physician [place] [facility] [place] 10/14/19 [facility] [address] [place] [address]- [facility] Attending Physician: Nila Tiwari Admitting Physician: AdmtrNila Referring Physician: Admtr, ArFei Allergies, Adverse Reactions, Alerts Substance Reaction Severity Status penicillin 1 Active 1rash Medications buPROPion 150 mg/24 hours (XL) oral tablet, extended release 1 tablet = 150 mg, By Mouth, Every 24 hours, # 90 tablet, 1 Refills, Maintenance, 05/25/19 8:49:00 EDT, ER Tablet, [facility], 1 tablet By Mouth Every 24 hours,x90 [...]
--- OUTSIDE RECORDS SUMMARY | 2023-12-31 20:13 | XMS_ITS | Continuity of Care Document ---
Author Organization [facility] Address [address] [place] [address]- Care Team Providers Care Supervising Film Or Videotape Editor Name Role Phone Evens Jeffries DO Primary Care Physician En[place] [facility] [place] Date(s): 03/28/23 - 03/28/[address] [address]- Attending Physician: Nitza KWOK, Yoli Rossi Allergies, Adverse Reactions, Alerts Substance Reaction Severity [...] (XL) oral tablet, extended release See Instructions, Take 1 tablet by mouth once daily, # 30 tablet, 0 Refills, Maintenance, 10/23/22 11:25:00 EDT, [facility], 164.8, cm, 07/17/22 13:47:00 EDT, Height Start Date: 10/23/22 Status: Ordered buPROPion 300 mg/24 hours (XL) oral tablet, extended release 1 tablet, By Mouth, Daily, # 30 tablet, 0 Refills, Maintenance, 08/07/22 14:13:00 EDT, [facility], 164.8, cm, 07/17/22 13:47:00 EDT, [...] 0 Refills, Maintenance, 06/19/22 9:14:00 EDT, Tablet, [facility], Partial fill upon patient [...] Primary Care Member Role: PCP Address: Address: [address] [place] [address]- Care Team Related Persons Name: TERESSA EDWARDS Address: home [address] [place] [address]
--- OUTSIDE RECORDS SUMMARY | 2023-12-31 20:13 | XMS_ITS | Continuity of Care Document ---
Author Organization [facility] ter Address [address] [place] [address]- Care Team Providers Care Swiss Machinist Name Role Phone Evens Jeffries DO Primary Care Physician [phone] [place] [facility] [place]/23 - 03/28/[address] [address]- Attending Physician: Nitza KWOK, Yoli Rossi Allergies, [...] tablet, 0 Refills, Maintenance, 10/23/22 11:25:00 EDT, [facility], 164.8, cm, 07/17/22 13:47:00 EDT, Height Start Date: 10/23/22 Status: Ordered buPROPion 300 mg/24 hours (XL) oral tablet, extended release 1 tablet, By Mouth, Daily, # 30 tablet, 0 Refills, Maintenance, 08/07/22 14:13:00 EDT, [facility], 164.8, cm, 07/17/22 13:47:00 EDT, [...] 0 Refills, Maintenance, 06/19/22 9:14:00 EDT, Tablet, [facility], Partial fill upon patient [...] Primary Care Member Role: PCP Address: Address: [address] [place] [address]- Care Team Related Persons Name: TERESSA EDWARDS Address: home [address] [place] [address]
--- OUTSIDE RECORDS SUMMARY | 2023-12-31 20:13 | XMS_ITS | Continuity of Care Document ---
Author Organization [facility] Address [address] [place] [address]- Care Team Providers Care Civil Rights Attorney Name Role Phone Anjel KWOK, Shakira Primary Care Physician [phone] [place] [facility] [place] - 02/14/22 [facility] [address] [place] [address]- Allergies, Adverse Reactions, Alerts Substance Reaction Severity [...] Refills, Maintenance, 01/16/22 16:40:00 EST, ER Tablet, [facility], Partial fill upon patient request if the [...] 1 Refills, Maintenance, 11/23/21 15:16:00 EDT, Tablet, [facility], Partial fill upon patient [...] Team Personnel Name: Shakira Hobbs NP Position: [facility] PCO Associate Professional Member Role: PCP Address: Address: [address] [place] [address] [place] [address]- Care Team Related Persons Name: TERESSA EDWARDS Address: home [address] [place] [address]
--- OUTSIDE RECORDS SUMMARY | 2023-12-31 20:13 | XMS_ITS | Continuity of Care Document ---
Author Organization [facility] Address [address] [place] [address]- Care Team Providers Care Manager Of Photography Name Role Phone Evens Jeffries DO Primary Care Physician [place] [facility] [place]14[place]22 - 07/14/22 [facility] [address] [place] [address]- Allergies, Adverse Reactions, Alerts Substance Reaction Severity [...] tablet, 0 Refills, Maintenance, 07/01/22 21:21:00 EDT, [facility], 163, cm, 06/19/22 8:51:00 [...] 0 Refills, Maintenance, 06/19/22 9:14:00 EDT, Tablet, [facility], Partial fill upon patient [...] Care Physician Member Role: PCP Address: Address: [address] [place] [address]- Care Team Related Persons Name: EDWARDS TERESSA Address: home [address] [place] [address]
--- OUTSIDE RECORDS SUMMARY | 2023-12-31 20:13 | XMS_ITS | Continuity of Care Document ---
Author Organization [facility] Address [address] [place] [address]- Care Team Providers Care Medical Records Coordinator Name Role Phone Lela Nails MD Primary Care Physician [place] [facility] [place] 03/04/20 [facility] [address] [place] [address]- Allergies, Adverse Reactions, Alerts Substance Reaction Severity Status penicillin 1 Active 1rash Medications buPROPion 150 mg/24 hours (XL) oral tablet, extended release 1 tablet = 150 mg, By Mouth, Every 24 hours, # 90 tablet, 1 Refills, Maintenance, 02/15/20 11:25:00EST, ER Tablet, [facility], 1 tablet By Mouth [...]
--- OUTSIDE RECORDS SUMMARY | 2023-12-31 20:13 | XMS_ITS | Continuity of Care Document ---
Author Organization [facility] Address [address] [place] [address]- Care Team Providers Care Grain Broker Name Role Phone Jaqui DEAL, Lela Naqvi Primary Care Physician [place] [facility] [place] - 11/26/19 [facility] [address] [place] [address]- [facility] Allergies, Adverse Reactions, Alerts Substance Reaction Severity Status penicillin 1 Active 1rash Medications buPROPion 150 mg/24 hours (XL) oral tablet, extended release 1 tablet = 150 mg, By Mouth, Every 24 hours, # 90 tablet, 1 Refills, Maintenance, 05/25/19 8:49:00 EDT, ER Tablet, [facility], 1 tablet By Mouth Every [...]
--- OUTSIDE RECORDS SUMMARY | 2023-12-31 20:13 | XMS_ITS | Continuity of Care Document ---
Author Organization [facility] Address [address] [place] [address]- Care Team Providers Care Clay Pigeon Setter Name Role Phone Lela Nails MD Primary Care Physician En[place] [facility] [place] Date(s): 09/14/19 - 09/21/19 [facility] [address] [place] [address]- [place] Encounter Diagnosis Vasovagal episode(Discharge Diagnosis) - 09/14/19 Attending Physician: Lela Nails MD Allergies, Adverse Reactions, Alerts Substance Reaction Severity Status penicillin 1 Active 1rash Medications buPROPion 150 mg/24 hours (XL) oral tablet, extended release 1 tablet = 150 mg, By Mouth, Every 24 hours, # 90 tablet, 1 Refills, Maintenance, 05/25/19 8:49:00 EDT, ER Tablet, [facility], 1 tablet By Mouth Every [...] Dates Health Status Cl inical Service Informant Vasovagal episode Discharge Diagnosis 09/14/19 Social History Social History Type Response Smoking Status Never (less than 100 in lifetime) entered on: 05/25/19 Sex
--- OUTSIDE RECORDS SUMMARY | 2023-12-31 20:13 | XMS_ITS | Continuity of Care Document ---
Author Organization [facility] Address [address] [place] [address]- Care Team Providers Care Field Artillery Officer Name Role Phone Evens Jeffries DO Primary Care Physician [phone] En[place] [facility] [place] Date(s): 07/11/23 - 08/10/23 [facility] [address] [place] [address]- Allergies, Adverse Reactions, Alerts Substance Reaction Severity [...] Primary Care Member Role: PCP Address: Address: [address] [place] [address]- [place] Care Team Related Persons Name: TERESSA EDWARDS Address: home [address] [place] [address]
--- OUTSIDE RECORDS SUMMARY | 2023-12-31 20:13 | XMS_ITS | Continuity of Care Document ---
Author Organization [facility] Address [address] [place] [address]- Care Team Providers Care Space Control Supervisor Name Role Phone Lela Nails MD Primary Care Physician [place] [facility] [place] 09/21/20 - 10/21/20 [facility] [address] [place] [address]- Allergies, Adverse Reactions, Alerts Substance Reaction Severity [...] Refills, Soft Stop, 09/18/20 14:39:00 EDT, Tablet, [facility], Partial fill upon patient request if the prescription is for a schedule II opioid drug., 163, cm, 09/18/20 14:12:00 EDT, Height, 85.... Start Date: 09/18/20 Status: Ordered benzonatate 100 mg oral capsule 1 capsule = 100 mg, By Mouth, 3 times a day, for 10 days, # 30 capsule, 0 Refills, Acute 10/23/20 8:09:00 EDT, 10/13/20 8:09:00 EDT, Capsule, [facility], Partial fill upon patient request if the prescription is for a schedule II opioid drug... Start Date: 10/13/20 Stop Date: 10/23/20 Status: Ordered buPROPion 150 mg/24 hours (XL) oral tablet, extended release 1 tablet = 150 mg, By Mouth, Every 24 hours, # 90 tablet, 1 Refills, Maintenance, 10/13/20 7:42:00 EDT, ER Tablet, [facility], 1 tablet By Mouth Every 24 hours,x90 days, 163, cm, 09/18/20 14:12:00 EDT, Height, 85.2, kg, 09/18/20 14:12:00 ED... Start Date: 10/13/20 Stop Date: 04/11/21 Status: Ordered Diflucan 150 mg oral tablet 1 tablet = 150 mg, By Mouth, Once, May repeat in 3 days if continued symptoms, # 2 tablet, 0 Refills, Soft Stop, 08/17/20 19:02:00 EDT, Tablet, [facility]/pharmacy #[id number], Partial fill upon patient request if the [...]
--- OUTSIDE RECORDS SUMMARY | 2023-12-31 20:13 | XMS_ITS | Continuity of Care Document ---
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 Diagnosis Diagnosis Type Effective Dates Health Status Clinical Service Informant Body aches Discharge Diagnosis 07/26/23 MDD (major depressive disorder), recurrent episode, moderate Discharge Diagnosis 07/26/23 Vital Signs Most recent to oldest [Reference Range]: 1 Height 164.8 cm (07/26/23 11:25 AM) Weight 93.0 kg (07/26/23 11:25 AM) Oxygen Saturation [94-100 %] 95 % (07/26/23 11:25 AM) Pulse Rate [55-90 bpm] 75 bpm (07/26/23 11:25 AM) Body Mass Index [18.5-24.99 kg/m2] 34.24 kg/m2 *>HHI* (07/26/23 11:25 AM) Blood Pressure [90-138/55-84 mm Hg] 111/ 71mm Hg (07/26/23 11:25 AM) Blood pressure sites Arm, right (07/26/23 11:25 AM) Weight Obtained Via Standing scale (07/26/23 11:25 AM) Social History Social History Type Response Smoking Status Never (less than 100 in lifetime) entered on: 05/25/19 Sex Note * Fab Houston: PERFORM Event Display: Patient Education/Instruction Authored Date: [id number] Ambulatory Adult Visit Summary [address] [address] Name: JHONY SALAS : 1985?? Visit: 07/26/2023 11:20?? Ambulatory Visit Instructions ?? Your Care Team Primary Care Provider Mervin DO, Evens? This Visit Provider Mervin DO, Evens Your Diagnosis Body aches MDD (major depressive disorder), recurrent episode, moderate Vitals Signs Pulse Rate: 75 bpm Height: 164.8 cm Systolic Blood Pressure: 111 mm Hg Weight: 93 kg Diastolic Blood Pressure: 71 mm Hg Body Mass Index:??34.24 kg/m2??Critical Oxygen Saturation: 95 % Body surface area: 2.06 What to do next Scheduled Follow-Up Appointments Saturday 10:15 AM EDT ?? Where: [facility] Radiology [facility] [place] [address], [address] [address]- Status: Pending Future Orders HIV Ab-Ag 4th Generation - Routine, Once, 07/25/23 10:15:00 EDT, Future Order, [facility], Blood?? C Reactive Protein - Routine, Once, 07/26/23 11:40:00 EDT, Order for Today, [facility], Blood?? IVANA Screen - Routine, Once, 07/26/23 11:40:00 EDT, Order for Today, [facility], Blood?? Rheumatoid Factor Qual (RF Qual) - Routine, Once, 07/26/23 11:40:00 EDT, Order for Today, [facility], Blood?? Northeast Tick PCR Panel - Routine, Once, 07/26/23 11:40:00 EDT, Order for Today, [facility], Blood?? Sedimentation Rate - Routine, Once, 07/26/23 11:40:00 EDT, Order for Today, [facility], Blood?? HIV Ab-Ag 4th Generation - Routine, Once, 07/26/23 11:45:00 EDT, Order for Today, [facility], Blood?? Medications The list below reflects the information in our records and provided by you today along with any changes made during this visit. Please continue your medications until treatment is completed or stopped by your provider. If this is different from the information you have or there are other questions,please contact the prescribing provider. What How Much When Instructions Unchanged Cetirizine (ZyrTEC 10 mg oral tablet) 1 tab(s) Oral Daily Unchanged Desogestrel-Ethinyl Estradiol (Enskyce 0.15 mg-0.03 mg oral tablet) 1 tab(s) Oral Daily Test Performed Below is a partial list of the tests performed during your Visit. You may have had other tests and procedures not included in this list. Please discuss all test results with your provider. IVANA Screen?-- Results Pending -- C Reactive Protein?-- Results Pending -- HIV Ab-Ag 4th Generation?-- Results Pending -- Northeast Tick PCR Panel?-- Results Pending -- RF Qual?-- Results Pending -- Sedimentation Rate?-- Results Pending -- You will be contacted within 72 hours with your results. Medications and Immunizations Administered Medications Given During Visit No medications given during this visit.?? Allergies (NKA means No Known Allergies) penicillin Common Emergency Awareness Tips IS IT A STROKE? Act FAST and Check for these signs: FACE Does the face look uneven? ARM Does one arm drift down? SPEECH Does their speech sound strange? TIME Call at any sign of stroke ?? Heart Attack Signs Chest discomfort: Most heart attacks involve discomfort in the center of the chest and lasts more than a few minutes, or goes away and comes back. It can feel like uncomfortable pressure, squeezing, fullness or pain. Discomfort in upper body: Symptoms can include pain or discomfort in one or both arms, back, neck, jaw or stomach. Shortness of breath: With or without discomfort. Other signs: Breaking out in a cold sweat, nausea, or lightheaded. Remember, MINUTES DO MATTER. If you experience any of these heart attack warning signs, call to get immediate medical attention! ?? Smoking can increase your chances of developing chronic health problems and can cause harmful effects to other family members in your house. If you smoke, you are strongly encouraged to quit. Please call [employer] at [phone] or 2-183-[employer] (8565) or log in to [email or web address] for referrals to smoking cessation programs. ?? The National Suicide Prevention Hotline is available 17/09 if you or someone you know needs to find a reason to keep living. By calling 2-566-556-[employer] (1281) you'll be connected to a skilled, trained counselor at a crisis center in your area. [facility] [email or web address] Portal You can view and manage your care through the patient portal or by using a health care lilia of your choosing. The [employer] is a website that allows you to securely view your medical information including your hospital discharge summary, office visit summaries, medications and follow-up visits. You can also request appointments, renew medications, and request access to your medical information using a health care lilia of your choosing, or just ask a question. You can enroll at [email or web address] or register during your next office visit. [facility], in keeping with [facility] guidance, no longer requires face masks for staff, patientsor visitors in most situations. Similiar to time spent indoors at other locations, there is the chance that you were exposed to repiratory viruses during your time with us (such as flu or COVID-19). If you develop symptoms concerning for a viral respiratory infection, please seek testing (and treatment if indicated) from your medical provider or home test kit. ?? Disclaimer: The information provided is of a general nature and is intended to be used in conjunction with the recommendations and advice of your health care practitioner. Every effort has been made to ensure that the information provided is accurate and complete at the time it is provided to you however, as your needs change, or, as new information becomes available, different or additional instructions may be required. ?? If you have questions, please consult with your primary care provider or pharmacist, as appropriate. This information is not intended to serve as substitution for assessment and evaluation by a qualified health care provider. If you do not have a primary care provider, you may find a [facility] provider by calling [facility] [employer] Link at [phone]. Patient Care team information Care Team Personnel Name: Evens Jeffries DO Position: S Physician - Primary Care Member Role: PCP Address: Address: [address] [place] [address]- Care Team Related Persons Name: EDWARDS TERESSA Address: home [address] [place] [address]
--- OUTSIDE RECORDS SUMMARY | 2023-12-31 20:13 | XMS_ITS | Continuity of Care Document ---
Author Organization [facility] Address [address] [place] [address]- Care Team Providers Care Art Glass Designer Name Role Phone Evens Jeffries DO Primary Care Physician [place] [facility] [place] 10/09/23 - 11/08/23 [facility] [address] [place] [address]- Allergies, Adverse Reactions, Alerts Substance Reaction Severity [...] Primary Care Member Role: PCP Address: Address: [address] [place] [address]- Care Team Related Persons Name: TERESSA EDWARDS Address: home [address] [place] [address]
--- OUTSIDE RECORDS SUMMARY | 2023-12-31 20:13 | XMS_ITS | Continuity of Care Document ---
Author Organization [facility] Address [address] [place] [address]- Care Team Providers Care Quality Control Inspector Heading Name Role Phone Lela Nails MD Primary Care Physician [place] [facility] [place] 02/02/20 - 03/03/20 [facility] [address] [place] [address]- Allergies, Adverse Reactions, Alerts Substance Reaction Severity Status penicillin 1 Active 1rash Medications buPROPion 150 mg/24 hours (XL) oral tablet, extended release 1 tablet = 150 mg, By Mouth, Every 24 hours, # 90 tablet, 1 Refills, Maintenance, 02/15/20 11:25:00EST, ER Tablet, [place] [facility], 1 tablet By Mouth [...]
--- OUTSIDE RECORDS SUMMARY | 2023-12-31 20:14 | XMS_ITS | Continuity of Care Document ---
Author Organization [facility] Address [address] [place] [address]- Care Team Providers Care Furniture Restorer Name Role Phone Evens Jeffries DO Primary Care Physician [phone] [place] [facility] [place] Date(s): 08/02/23 - 09/01/23 [facility] [address] [place] [address]- Allergies, Adverse Reactions, Alerts Substance Reaction Severity [...] Care Member Role: PCP Address: Address: [address] [place] [address] [place] Care Team Related Persons Name: TERESSA EDWARDS Address: home [address] [place] [address]
--- OUTSIDE RECORDS SUMMARY | 2023-12-31 20:14 | XMS_ITS | Continuity of Care Document ---
Author Organization [facility] Address [address] [place] [address]- Care Team Providers Care Senior Courtroom Clerk Name Role Phone Lela Nails MD Primary Care Physician [place] [facility] [place]/21 [facility] [address] [place] [address]- Allergies, Adverse Reactions, Alerts Substance Reaction Severity [...] Refills, Soft Stop, 09/18/20 14:39:00 EDT, Tablet, [id number], Partial fill upon patient request if the prescription is for a schedule II opioid drug., 163, cm, 09/18/20 14:12:00 EDT, Height, 85.... Start Date: 09/18/20 Status: Ordered buPROPion 150 mg/24 hours (XL) oral tablet, extended release 1 tablet = 150 mg, By Mouth, Every 24 hours, # 90 tablet, 3 Refills, Maintenance, 12/01/20 14:23:00EDT, ER Tablet, [facility] [...] Refills, Soft Stop, 08/17/20 19:02:00 EDT, Tablet, [facility]/pharmacy #[id number], Partial fill upon patient request [...]
--- OUTSIDE RECORDS SUMMARY | 2023-12-31 20:14 | XMS_ITS | Continuity of Care Document ---
Author Organization [facility] Address [address] [place] [address]- Care Team Providers Care Word Processor Technician Name Role Phone Lela Nails MD Primary Care Physician [place] [facility] [place] 09/20/20 - 10/20/20 [facility] [address] [place] [address]- Allergies, Adverse Reactions, Alerts Substance Reaction Severity [...] Refills, Soft Stop, 09/18/20 14:39:00 EDT, Tablet, [facility], Partial fill upon patient request if the prescription is for a schedule II opioid drug., 163, cm, 09/18/20 14:12:00 EDT, Height, 85.... Start Date: 09/18/20 Status: Ordered benzonatate 100 mg oral capsule 1 capsule = 100 mg, By Mouth, 3 times a day, for 10 days, # 30 capsule, 0 Refills, Acute 10/23/20 8:09:00 EDT, 10/13/20 8:09:00 EDT, Capsule, [facility], Partial fill upon patient request if the prescription is for a schedule II opioid drug... Start Date: 10/13/20 Stop Date: 10/23/20 Status: Ordered buPROPion 150 mg/24 hours (XL) oral tablet, extended release 1 tablet = 150 mg, By Mouth, Every 24 hours, # 90 tablet, 1 Refills, Maintenance, 10/13/20 7:42:00 EDT, ER Tablet, [facility] 5273, 1 tablet By Mouth Every 24 hours,x90 days, 163, cm, 09/18/20 14:12:00 EDT, Height, 85.2, kg, 09/18/20 14:12:00 ED... Start Date: 10/13/20 Stop Date: 04/11/21 Status: Ordered Diflucan 150 mg oral tablet 1 tablet = 150 mg, By Mouth, Once, May repeat in 3 days if continued symptoms, # 2 tablet, 0 Refills, Soft Stop, 08/17/20 19:02:00 EDT, Tablet, [facility]/pharmacy #[id number], Partial fill upon patient request if the [...]
--- OUTSIDE RECORDS SUMMARY | 2023-12-31 20:14 | XMS_ITS | Continuity of Care Document ---
Author Organization [facility] Jaziel Kirk lt Address [address] [place] [address]- Care Team Providers Care Water Softener Service Supervisor Name Role Phone Anjel KWOK, Shakira Naqvi Primary Care Physician [place] [facility] [place] 10/29/21 [facility] Baljit Spannley Adult [address] [place] [address]- Allergies, Adverse Reactions, Alerts Substance Reaction Severity [...] tablet = 300 mg, By Mouth, Daily, # 30 tablet, 1 Refills, Maintenance, 09/28/21 11:29:00 EDT, ER Tablet, [facility], Partial fill upon patient request if the prescription is for a schedule II opioid drug., 163, cm, 09/28/21 11:13:00 EDT,... Start Date: 09/28/21 Status: Ordered Enskyce 0.15 mg-0.03 mg oral tablet 1 tablet, By Mouth, Daily, # 28 tablet, 0 Refills, Maintenance, 09/28/21 11:15:00 EDT, Tablet, Partial fill upon patient request if the prescription is for a schedule II opioid drug. Start Date: 09/28/21 Status: Ordered Vital-D oral tablet 1 tablet, [...] Status Inform ant Allergic rhinitis(Confirmed) 04/24/20 Active Anxiety(Confirmed) Active ADHD (attention deficit hype ractivity disorder), inattentive type(Confirmed) Active Constipation(Confirmed) Active Vitamin D insufficiency(Confirmed) Active Gastroesophageal reflux disease(Confirmed) Active Irritable bowel syndrome gianni racterized by constipation(Confirmed) Active Mixed anxiety and depressive disorder(Confirmed) 04/24/20 Active Obese class I(Confirmed) Active Health care maintenance(Confirmed) Active Recurrent genital herpes simplex(Confirmed) 04/24/20 Active MDD (major depressive disord er), recurrent episode, moderate(Confirmed) Active Seasonal allergy(Confirmed) Active 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
--- OUTSIDE RECORDS SUMMARY | 2023-12-31 20:14 | XMS_ITS | Continuity of Care Document ---
Author Organization [facility] Address [address] [place] [address]- Care Team Providers Care Humanities Teacher Name Role Phone Evens Jeffries DO Primary Care Physician [phone] Encounter [facility] [place] Date(s): 07/25/23 - 08/01/23 [facility] [address] [place] [address]- Encounter Diagnosis MDD (major depressive disorder), recurrent episode, moderate(Discharge Diagnosis) - 07/25/23 Generalized anxiety disorder(Discharge Diagnosis) - 07/25/23 Allergic rhinitis(Discharge Diagnosis) - 07/25/23 Recurrent genital herpes simplex(Discharge Diagnosis) - 07/25/23 Irritable bowel syndrome characterized by constipation(Discharge Diagnosis) - 07/25/23 Obese class I(Discharge Diagnosis) - 07/25/23 Health care maintenance(Discharge Diagnosis) - 07/25/23 Attending Physician: Danay Aguilar NP Referring Physician: Evens Jeffries DO Allergies, Adverse Reactions, [...] Effective Dates Health Status Clinical Service Informant MDD (major depressive disorder), recurrent episode, moderate Discharge Diagnosis 07/25/23 Generalized anxiety disorder Discharge Diagnosis 07/25/23 Allergic rhinitis Discharge Diagnosis 07/25/23 Recurrent genital herpes simplex Discharge Diagnosis 07/25/23 Irritable bowel syndrome characterized by constipation Discharge Diagnosis 07/25/23 Obese class I Discharge Diagnosis 07/25/23 Health care maintenance Discharge Diagnosis 07/25/23 Vital Signs Most recent to oldest [Reference Range]: 1 Height 164.8 cm (07/25/23 9:48 AM) Weight 92.5 kg (07/25/23 9:48 AM) Oxygen Saturation [94-100 %] 100 % (07/25/23 9:48 AM) Pulse Rate [55-90 bpm] 60 bpm (07/25/23 9:48 AM) Body Mass Index [18.5-24.99 kg/m2] 34.06 kg/m2 *>HHI* (07/25/23 9:48 AM) Blood Pressure [90-138/55-84 mm Hg] 112/ 61mm Hg (07/25/23 9:48 AM) Mode of Delivery (Oxygen) Room air (07/25/23 9:48 AM) Blood pressure sites Arm, left (07/25/23 9:48 AM) Weight Obtained Via Standing scale (07/25/23 9:48 AM) Social History Social History Type Response Smoking Status Never (less than 100 in lifetime) entered on: 05/25/19 Sex Patient Care team information Care Team Personnel Name: Evens Jeffries DO Position: [facility] Physician - Primary Care Member Role: PCP Address: Address: [address] [place] [address]- Care Team Related Persons Name: TERESSA EDWARDS Address: home [address] [place] [address]
--- OUTSIDE RECORDS SUMMARY | 2023-12-31 20:14 | XMS_ITS | Continuity of Care Document ---
Author Organization [facility] Address [address] [place] [address]- Care Team Providers Care Concrete Engineering Technician Name Role Phone Evens Jeffries DO Primary Care Physician [phone] Encounter [facility] [place] Date(s): 06/15/22 - 07/15/22 [facility] [address] [place] [address]- Allergies, Adverse Reactions, Alerts Substance Reaction Severity [...] tablet, 0 Refills, Maintenance, 07/01/22 21:21:00 EDT, [facility], 163, cm, 06/19/22 8:51:00 EDT, [...] 0 Refills, Maintenance, 06/19/22 9:14:00 EDT, Tablet, [facility] 5279, Partial fill upon patient request if the [...] Care Physician Member Role: PCP Address: Address: [address] [place] [address]- Care Team Related Persons Name: TERESSA EDWARDS Address: home [address] [place] [address]
--- OUTSIDE RECORDS SUMMARY | 2023-12-31 20:14 | XMS_ITS | Continuity of Care Document ---
Author Organization [facility] Address [address] [place] [address]- Care Team Providers Care Rounding Machine Tender Name Role Phone Evens Jeffries DO Primary Care Physician Encounter [facility] [place] Date(s): 09/27/23 - 10/27/23 [facility] [address] [place] [address]- Allergies, Adverse Reactions, Alerts Substance Reaction Severity [...] Primary Care Member Role: PCP Address: Address: [address] [place] [address]- Care Team Related Persons Name: TERESSA EDWARDS Address: home [address] [place] [address]
--- OUTSIDE RECORDS SUMMARY | 2023-12-31 20:14 | XMS_ITS | Continuity of Care Document ---
Author Organization [facility] Address [address] [place] [address]- Care Team Providers Care Mutual Fund Accountant Name Role Phone Lela Nails MD Primary Care Physician En[place] [facility] [place] [facility] [id number] Date(s): 02/04/20 - 03/05/20 [facility] [address] [place] [address]- Attending Physician: Nila Tiwari Admitting Physician: AdmtrNila Referring Physician: Admtr, ArFei Allergies, Adverse Reactions, Alerts Substance Reaction Severity Status penicillin 1 Active 1rash Medications buPROPion 150 mg/24 hours (XL) oral tablet, extended release 1 tablet = 150 mg, By Mouth, Every 24 hours, # 90 tablet, 1 Refills, Maintenance, 02/15/20 11:25:00EST, ER Tablet, [id number], 1 tablet By [...]
--- OUTSIDE RECORDS SUMMARY | 2023-12-31 20:14 | XMS_ITS | Continuity of Care Document ---
Author Organization [facility] Address [address] [place] [address]- Care Team Providers Care Dimensional Inspector Name Role Phone Evens Jeffries DO Primary Care Physician [phone] Encounter [facility] [place] Date(s): 06/19/22 - 07/19/22 [facility] [address] [place] [address]- Allergies, Adverse Reactions, Alerts Substance Reaction Severity [...] Mouth, Every 24 hours, # 90 tablet, 0 Refills, Maintenance, 07/17/22 14:21:00EDT, ER Tablet, [facility], Partial fill upon patient request if the prescription is fora schedule II opioid drug., 1 tablet By Mouth Every... Start Date: 07/17/22 Status: Ordered buPROPion 300 mg/24 hours (XL) oral tablet, extended release See Instructions, TAKE 1 TABLET BY MOUTH ONCE DAILY- TAKE WITH 150MG TABLET FOR A DAILY DOSE OF 450MG, # 30 tablet, 0 Refills, Maintenance, 07/01/22 21:21:00 EDT, [facility], 163, cm, 06/19/22 8:51:00 [...] 0 Refills, Maintenance, 06/19/22 9:14:00 EDT, Tablet, [facility]278, Partial fill upon patient [...] Team Personnel Name: Evens Jeffries DO Position: [facility] Physician - Primary Care Member Role: PCP Address: Address: [address] [place] [address]- [place] Care Team Related Persons Name: TERESSA EDWARDS Address: home [address] [place] [address]
--- OUTSIDE RECORDS SUMMARY | 2023-12-31 20:14 | XMS_ITS | Continuity of Care Document ---
Author Organization [facility] Address [address] [place] [address]- Care Team Providers Care Production Miner Name Role Phone Evens Jeffries DO Primary Care Physician [place] [facility] [place] Date(s): 10/21/23 - 10/28/23 [facility] [address] [place] [address]- Encounter Diagnosis MDD (major depressive disorder), recurrent episode, moderate(Discharge Diagnosis) - 10/21/23 Attending Physician: Evens Jeffries DO Allergies, Adverse [...] Daily, # 28 tablet, 0 Refills, Maintenance, 08/04/22 11:15:00 EDT, Tablet, Partial fill upon patient [...] depressive disorder), recurrent episode, moderate Discharge Diagnosis 10/21/23 Vital Signs Most recent to oldest [Reference Range]: 1 Height 164.8 cm (10/21/23 10:59 AM) Social History Social History Type Response Smoking Status Never (less than 100 in lifetime) entered on: 05/25/19 Sex Patient Care team information Care Team Personnel Name: Evens Jeffries DO Position: S Physician - Primary Care Member Role: PCP Address: Address: [address] [place] [address]- Care Team Related Persons Name: EDWARDS TERESSA Address: home [address] [place] [address]
--- OUTSIDE RECORDS SUMMARY | 2023-12-31 20:14 | XMS_ITS | Continuity of Care Document ---
Author Organization [facility] Address [address] [place] [address]- Care Team Providers Care Dye Padder Operator Name Role Phone Shakira Hobbs NP Primary Care Physician [place] [facility] [place]05[place] 08/26/21 [facility] [address] [place] [address]- Attending Physician: Shakira Hobbs NP Allergies, Adverse Reactions, Alerts Substance Reaction Severity [...] Refills, Soft Stop, 09/18/20 14:39:00 EDT, Tablet, [facility], Partial fill upon patient request if the prescription is for a schedule II opioid drug., 163, cm, 09/18/20 14:12:00 EDT, Height, 85.... Start Date: 09/18/20 Status: Ordered buPROPion 150 mg/24 hours (XL) oral tablet, extended release 1 tablet = 150 mg, By Mouth, Every 24 hours, # 90 tablet, 3 Refills, Maintenance, 12/01/20 14:23:00EDT, ER Tablet, [facility] 5278, 1 tablet By Mouth Every 24 hours,x90 days, 163, cm, 12/01/2112:49:00 EDT, Height, 85.2, kg, 09/18/20 14:12:00 E... Start Date: 12/01/20 Stop Date: 11/26/21 Status: Ordered Diflucan 150 mg oral tablet 1 tablet = 150 mg, By Mouth, Once, May repeat in 3 days if continued symptoms, # 2 tablet, 0 Refills, Soft Stop, 08/17/20 19:02:00 EDT, Tablet, [facility]/pharmacy #[id number], Partial fill upon patient request if the prescription is for a schedule II opioid drug.... Start Date: 08/17/20 Status: Ordered June03/16 oral tablet 1 tablet, By Mouth, Daily, [...]
--- OUTSIDE RECORDS SUMMARY | 2023-12-31 20:14 | XMS_ITS | Continuity of Care Document ---
Author Organization [facility] Jaziel Kirk lt Address [address] [place] [address]- Care Team Providers Care Recruiter Name Role Phone Lela Nails MD Primary Care Physician [place] [facility] [place] Date(s): 01/02/21 - 02/01/21 [facility] Adult [address] [place] [address]- Allergies, Adverse Reactions, Alerts Substance Reaction Severity [...] Refills, Soft Stop, 09/18/20 14:39:00 EDT, Tablet, [facility]278, Partial fill upon patient request if the prescription is for a schedule II opioid drug., 163, cm, 09/18/20 14:12:00 EDT, Height, 85.... Start Date: 09/18/20 Status: Ordered buPROPion 150 mg/24 hours (XL) oral tablet, extended release 1 tablet = 150 mg, By Mouth, Every 24 hours, # 90 tablet, 3 Refills, Maintenance, 12/01/20 14:23:00EDT, ER Tablet, [facility] 5278, 1 tablet By Mouth Every 24 hours,x90 days, 163, cm, 12/01/2112:49:00 EDT, Height, 85.2, kg, 09/18/20 14:12:00 E... Start Date: 12/01/20 Stop Date: 11/26/21 Status: Ordered Diflucan 150 mg oral tablet 1 tablet = 150 mg, By Mouth, Once, May repeat in 3 days if continued symptoms, # 2 tablet, 0 Refills, Soft Stop, 08/17/20 19:02:00 EDT, Tablet, [facility]/pharmacy #[id number], Partial fill upon patient request if [...]
--- OUTSIDE RECORDS SUMMARY | 2023-12-31 20:14 | XMS_ITS | Continuity of Care Document ---
Author Organization [facility] Address [address] [place] [address]- Care Team Providers Care Field Artillery Basic Name Role Phone Evens Jeffries DO Primary Care Physician [phone] Encounter [facility] [place] Date(s): 06/19/22 - 06/26/22 [facility] [address] [place] [address]- Encounter Diagnosis MDD (major depressive disorder), recurrent episode, moderate(Discharge Diagnosis) - 06/19/22 Anxiety(Discharge Diagnosis) - 06/19/22 ADHD (attention deficit hyperactivity disorder), inattentive type(Discharge Diagnosis) - 06/19/22 Attending Physician: Saritha KWOK, Simran Naqvi Allergies, Adverse Reactions, Alerts Substance Reaction [...] Refills, Maintenance, 04/24/22 13:36:00 EST, ER Tablet, [facility]8, Partial fill upon patient request if the [...] 0 Refills, Maintenance, 06/19/22 9:14:00 EDT, Tablet, [facility]278, Partial fill upon patient request if [...] Condition Confirmation Course Effective Dates Status H ealt Status Informant Allergic rhinitis Confirmed 04/24/20 Active [...] 04/11/19 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 Diagnosis Diagnosis Type Effective Dates Health Status Clinical Service Informant MDD (major depressive disorder), recurrent episode, moderate Discharge Diagnosis 06/19/22 Anxiety Discharge Diagnosis 06/19/22 ADHD (attention deficit hyperactivity disorder), inattentive type Discharge Diagnosis 06/19/22 Vital Signs Most recent to oldest [Reference Range]: 1 Height 163 cm (06/19/22 8:51 AM) Weight 90.4 kg (06/19/22 8:51 AM) Oxygen Saturation [94-100 %] 96 % (06/19/22 8:51 AM) Pulse Rate [55-90 bpm] 73 bpm (06/19/22 8:51 AM) Body Mass Index [18.5-24.99 kg/m2] 34.02 kg/m2 *>HHI* (06/19/22 8:51 AM) Blood Pressure [90-138/55-84 mm Hg] 128/ 71mm Hg (06/19/22 8:51 AM) Blood pressure sites Arm, right (06/19/22 8:51 AM) Weight Obtained Via Standing scale (06/19/22 8:51 AM) Social History Social History Type Response Smoking Status Never (less than 100 in lifetime) entered on: 05/25/19 Sex Patient Care team information Care Team Personnel Name: Evens Jeffries DO Position: S Primary Care Physician Member Role: PCP Address: Address: [address] [place] [address]- Care Team Related Persons Name: TERESSA EDWARDS Address: home [address] [place] [address]
--- OUTSIDE RECORDS SUMMARY | 2023-12-31 20:14 | XMS_ITS | Continuity of Care Document ---
Author Organization [facility] Address [address] [place] [address]- Care Team Providers Care Chief Nuclear Medicine Technologist Name Role Phone Anjel KWOK, Shakira Naqvi Primary Care Physician [place] [facility] [place] 08/16/21 [facility] [address] [place] [address]- Allergies, Adverse Reactions, Alerts Substance Reaction Severity [...] Refills, Soft Stop, 09/18/20 14:39:00 EDT, Tablet, [facility], Partial fill upon patient request if the prescription is for a schedule II opioid drug., 163, cm, 09/18/20 14:12:00 EDT, Height, 85.... Start Date: 09/18/20 Status: Ordered buPROPion 150 mg/24 hours (XL) oral tablet, extended release 1 tablet = 150 mg, By Mouth, Every 24 hours, # 90 tablet, 3 Refills, Maintenance, 12/01/20 14:23:00EDT, ER Tablet, [facility], 1 tablet By Mouth Every 24 hours,x90 days, 163, cm, 12/01/2112:49:00 EDT, Height, 85.2, kg, 09/18/20 14:12:00 E... Start Date: 12/01/20 Stop Date: 11/26/21 Status: Ordered Diflucan 150 mg oral tablet 1 tablet = 150 mg, By Mouth, Once, May repeat in 3 days if continued symptoms, # 2 tablet, 0 Refills, Soft Stop, 08/17/20 19:02:00 EDT, Tablet, [facility]/pharmacy #[id number], Partial fill upon patient request [...]
--- OUTSIDE RECORDS SUMMARY | 2023-12-31 20:14 | XMS_ITS | Continuity of Care Document ---
Author Organization [facility] Address [address] [place] [address]- Care Team Providers Care Senior Manufacturing Supervisor Name Role Phone Lela Nails MD Primary Care Physician [place] [facility] [place] 08[place]24/20 [facility] [address] [place] [address]- Attending Physician: Jillian Ann MD Referring Physician: Lela Nails MD Allergies, [...] 1 Refills, Maintenance, 02/15/20 11:25:00EST, ER Tablet, [id number], 1 tablet By Mouth Every 24 hours,x90 days Start Date: 02/15/20 Stop Date: 08/13/20 Status: Ordered Diflucan 150 mg oral tablet 1 tablet = 150 mg, By Mouth, Once, May repeat in 3 days if continued symptoms, # 2 tablet, 0 Refills, Soft Stop, 08/17/20 19:02:00 EDT, Tablet, [facility]/pharmacy #[id number], Partial fill upon patient request if the [...] D insufficiency(Confirmed) Active Health care maintenance(Confirmed) Active Vital Signs Most recent to oldest [Reference Range]: 1 Height 163 cm (08/17/20 6:41 PM) Weight 86.8 kg (08/17/20 6:41 PM) Oxygen Saturation [94-100 %] 100 % (08/17/20 6:41 PM) Pulse Rate [55-90 bpm] 80 bpm (08/17/20 6:41 PM) Body Mass Index [18.5-24.99] 32.67 *>HHI* (08/17/20 6:41 PM) Blood Pressure [90-138/55-84 mm Hg] 109/ 65mm Hg (08/17/20 6:41 PM) Respiratory Rate [16-30 br/min] 16 br/mi n (08/17/20 6:41 PM) Temperature [96.8-100.4 DegF] 98.3 DegF (08/17/20 6:41 PM) Mode of Delivery (Oxygen) Room air (08/17/20 6:41 PM) Blood pressure sites Arm, right (08/17/20 6:41 PM) Temperature Route Temporal (08/17/20 6:41 PM) Dry Weight 86.8 kg (08/17/20 6:41 PM) Weight Obtained Via Standing scale (08/17/20 6:41 PM) Dry Weight Obtained Via Standing scale (08/17/20 6:41 PM) Social History Social History Type Response Smoking Status Never (less than 100 in lifetime) entered on: 05/25/19 Sex
--- OUTSIDE RECORDS SUMMARY | 2023-12-31 20:14 | XMS_ITS | Continuity of Care Document ---
Author Organization [facility] Address [address] [place] [address]- Care Team Providers Care Staff Air Tactical Officer Name Role Phone Evens Jeffries DO Primary Care Physician Encounter [facility] [place] Date(s): 07/17/22 - 07/24/22 [facility] [address] [place] [address]- Encounter Diagnosis MDD (major depressive disorder), recurrent episode, moderate(Discharge Diagnosis) - 07/17/22 Health care maintenance(Discharge Diagnosis) - 07/17/22 Attending Physician: Evens Jeffries DO Allergies, Adverse [...] 0 Refills, Maintenance, 07/17/22 14:21:00EDT, ER Tablet, [id number], Partial fill upon patient request if the prescription is fora schedule II opioid drug., 1 tablet By Mouth Every... Start Date: 07/17/22 Status: Ordered buPROPion 300 mg/24 hours (XL) oral tablet, extended release See Instructions, TAKE 1 TABLET BY MOUTH ONCE DAILY- TAKE WITH 150MG TABLET FOR A DAILY DOSE OF 450MG, # 30 tablet, 0 Refills, Maintenance, 07/01/22 21:21:00 EDT, [id number], 163, cm, 06/19/22 [...] 0 Refills, Maintenance, 06/19/22 9:14:00 EDT, Tablet, [facility] [id number], Partial fill upon [...] depressive disorder), recurrent episode, moderate Discharge Diagnosis 07/17/22 Health care maintenance Discharge Diagnosis 07/17/22 Vital Signs Most recent to oldest [Reference Range]: 1 Height 164.8 cm (07/17/22 1:47 PM) Weight 90.9 kg (07/17/22 1:47 PM) Oxygen Saturation [94-100 %] 97 % (07/17/22 1:47 PM) Pulse Rate [55-90 bpm] 75 bpm (07/17/22 1:47 PM) Body Mass Index [18.5-24.99 kg/m2] 33.47 kg/m2 *>HHI* (07/17/22 1:47 PM) Blood Pressure [90-138/55-84 mm Hg] 102/ 68mm Hg (07/17/22 1:47 PM) Blood pressure sites Arm, right (07/17/22 1:47 PM) Weight Obtained Via Standing scale (07/17/22 1:47 PM) Social History Social History Type Response Smoking Status Never (less than 100 in lifetime) entered on: 05/25/19 Sex Note * Caroline Liu: PERFORM, SIGN, VERIFY Event Display: Patient Education/Instruction Authored Date: [id number] [facility] Clinical Summary Name JHONY SALAS Age 36 Years 1985 PCP Evens Jeffries DO PCP Visit Date 07/17/2022 13:43:00 Additional Instructions: Scheduled Appointments?? Future Appointments ?No Future Appointments Scheduled Follow-Up Instructions ?? Diagnosis Encounter for general adult medical examination without abnormal findings; Major depressive disorder, recurrent, moderate Medications: Please continue your medications until treatment is completed or stopped by your provider. Discuss any questions related to medications with your provider. Medications to Continue Taking That Have Changed [id number], [address] [place] [phone], [phone] - BuPROpion (buPROPion 150 mg/24 hours (XL) oral tablet, extended release) 1 tab(s) Oral every 24 hours. Refills: 0. Next Dose: These medications were not printed or sent to your pharmacy - BuPROpion (buPROPion 300 mg/24 hours (XL) oral tablet, extended release) TAKE 1 TABLET BY MOUTH ONCE DAILY- TAKE WITH 150MG TABLET FOR A DAILY DOSE OF 450MG. Refills: 0. Next Dose: Medications to Continue with No Changes These medications were not printed or sent to your pharmacy Cetirizine (ZyrTEC 10 mg oral tablet) 1 tab(s) Oral Daily. Refills: 0. Next Dose: Desogestrel-Ethinyl Estradiol (Enskyce 0.15 mg-0.03 mg oral tablet) 1 tab(s) Oral Daily. Next Dose: Escitalopram (escitalopram 10 mg oral tablet) 1 tab(s) Oral Daily. Refills: 0. Next Dose: Multivitamin With Minerals (Vital-D oral tablet) 1 tab(s) Oral Daily. Next Dose: Allergy Info:?? penicillin Medications Given This Visit Future Orders ?No future orders Vital Signs Height 164.8 cm Weight 90.9 kg BMI 33.47 kg/m2 Blood Pressure 102 mm Hg/68 mm Hg Temperature Pulse Rate 75 bpm Respiratory Rate 02 Sat Mode of Delivery 97 %/ You can now view a summary of your hospital visit from the comfort of your home through a free online portal called [employer] is a website that allows you to securely view your medical information including discharge summary, medications and follow-up visits. ??You can alsosend a secure electronic message to your doctor???s office to request appointments, renew medications or just ask a question. You can enroll at [email or web address] or register during your next office visit. Disclaimer:?? The information provided is of a general nature and is intended to be used in conjunction with the recommendations and advice of your health care practitioner. ??Every effort has been made to ensure that the information provided is accurate and complete at the time it is provided to you however, as your needs change, or, as new ??information becomes available, different or additional instructions may be required. If you have questions, please consult with your primary care provider or pharmacist, as appropriate. ??This information is not intended to serve as substitution for assessment and evaluation by a qualified health care provider. If you do not have a primary care provider, you may find a [facility] provider by calling [facility] at [phone]. For information about the plan of care including goals and instructions for your diagnosis, please see the patient education orders section of this document. Patient Education Materials?? The content of this educational material or handout may have been modified, supplemented, or adapted from its original content and format to support your individualized medical care. Patient Care team information Care Team Personnel Name: Evens Jeffries DO Position: [facility] Physician - Primary Care Member Role: PCP Address: Address: [address] [place] [address]- Care Team Related Persons Name: EDWARDSTERESSA Address: [address] [place] [address]
--- OUTSIDE RECORDS SUMMARY | 2023-12-31 20:14 | XMS_ITS | Continuity of Care Document ---
Author Organization [facility] Address [address] [place] [address]- Care Team Providers Care Dry Cleaning Machine Operator Helper Name Role Phone Lela Nails MD Primary Care Physician Encounter [facility] [place] Date(s): 02/10/20 - 03/11/20 [facility] [address] [place] [address]- Allergies, Adverse Reactions, Alerts Substance Reaction Severity Status penicillin 1 Active 1rash Medications buPROPion 150 mg/24 hours (XL) oral tablet, extended release 1 tablet = 150 mg, By Mouth, Every 24 hours, # 90 tablet, 1 Refills, Maintenance, 02/15/20 11:25:00EST, ER Tablet, [facility], 1 tablet By Mouth Every [...]
--- OUTSIDE RECORDS SUMMARY | 2023-12-31 20:14 | XMS_ITS | Continuity of Care Document ---
Author Organization [facility] Address [address] [place] [address]- Care Team Providers Care Field Project Manager Name Role Phone Evens Jeffrise DO Primary Care Physician [phone] [place] [facility] 06[place]05[place]22 - 07/18/22 [facility] [address] [place] [address]- Attending Physician: Evens Jeffries DO Allergies, Adverse [...] 0 Refills, Maintenance, 07/17/22 14:21:00EDT, ER Tablet, [facility], Partial fill upon patient [...] tablet, 0 Refills, Maintenance, 07/01/22 21:21:00 EDT, [facility], 163, cm, 06/19/22 8:51:00 [...] 0 Refills, Maintenance, 06/19/22 9:14:00 EDT, Tablet, [facility] 5278, Partial fill upon patient [...] Team Personnel Name: Evens Jeffries DO Position: [facility] Physician - Primary Care Member Role: PCP Address: Address: [address] [place] [address]- Care Team Related Persons Name: TERESSA EDWARDS Address: [address] [place] [address]
--- OUTSIDE RECORDS SUMMARY | 2023-12-31 20:14 | XMS_ITS | Continuity of Care Document ---
Author Organization [facility] Address [address] [place] [address]- Care Team Providers Care Bank Note Designer Name Role Phone Lela Nails MD Primary Care Physician [place] [facility] [place] 03/09/21 - 04/08/21 [facility] [address] [place] [address]- Attending Physician: Admzachariah, Nila Admitting Physician: AdmtrNila [...] Refills, Soft Stop, 09/18/20 14:39:00 EDT, Tablet, [employer], Partial fill upon patient request if the prescription is for a schedule II opioid drug., 163, cm, 09/18/20 14:12:00 EDT, Height, 85.... Start Date: 09/18/20 Status: Ordered buPROPion 150 mg/24 hours (XL) oral tablet, extended release 1 tablet = 150 mg, By Mouth, Every 24 hours, # 90 tablet, 3 Refills, Maintenance, 12/01/20 14:23:00EDT, ER Tablet, [employer], [facility], 1 tablet By Mouth Every 24 hours,x90 days, 163, cm, 12/01/2112:49:00 EDT, Height, 85.2, kg, 09/18/20 14:12:00 E... Start Date: 12/01/20 Stop Date: 11/26/21 Status: Ordered Diflucan 150 mg oral tablet 1 tablet = 150 mg, By Mouth, Once, May repeat in 3 days if continued symptoms, # 2 tablet, 0 Refills, Soft Stop, 08/17/20 19:02:00 EDT, Tablet, [facility]/pharmacy #[id number], Partial fill upon patient request [...]
--- OUTSIDE RECORDS SUMMARY | 2023-12-31 20:14 | XMS_ITS | Continuity of Care Document ---
Author Organization [facility] Address [address] [place] [address]- Care Team Providers Care Auto Brake Mechanic Name Role Phone Lela Nails MD Primary Care Physician [place] [facility](s[place] 12/09/20 - 04/08/21 [facility] [address] [place] [address]- Attending Physician: Thony MANAGER PHOTOGRAPHY, Mónica Crabtree Allergies, Adverse Reactions, Alerts Substance Reaction Severity [...] Refills, Soft Stop, 09/18/20 14:39:00 EDT, Tablet, [facility], Partial fill upon patient request if the prescription is for a schedule II opioid drug., 163, cm, 09/18/20 14:12:00 EDT, Height, 85.... Start Date: 09/18/20 Status: Ordered buPROPion 150 mg/24 hours (XL) oral tablet, extended release 1 tablet = 150 mg, By Mouth, Every 24 hours, # 90 tablet, 3 Refills, Maintenance, 12/01/20 14:23:00EDT, ER Tablet, [facility], 1 tablet By Mouth Every [...]
--- OUTSIDE RECORDS SUMMARY | 2023-12-31 20:14 | XMS_ITS | Continuity of Care Document ---
Author Organization [facility] Address [address] [place] [address]- Care Team Providers Care Ase Master Mechanic Name Role Phone Shakira Hobbs NP Primary Care Physician [place] [facility] [place] 10/05/21 [facility] [address] [place] [address]- Encounter Diagnosis MDD (major depressive disorder), recurrent episode, moderate(Discharge Diagnosis) - 09/28/21 Attending Physician: Shakira Hobbs NP Allergies, Adverse Reactions, Alerts Substance Reaction Severity Status penicillin 1 Active 1rash Immunizations Given and Recorded Vaccine Date Status Refusal Reason influenza virus vaccine, inactivated 03/01/21 Jo rded influenza virus vaccine, inactivated 12/18/19 Oj rded SARS-CoV-2 (COVID-19) mRNA BNT-162b2 vac 07/15/20 Given SARS-CoV-2 (COVID-19) mRNA BNT-162b2 vac 06/24/20 Given Medications buPROPion 300 mg/24 hours (XL) oral tablet, extended release 1 tablet = 300 mg, By Mouth, Daily, # 30 tablet, 1 Refills, Maintenance, 09/28/21 11:29:00 EDT, ER Tablet, [facility] 5278, Partial fill upon patient request [...] ankle(Confirmed) 04/11/19 Active 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 Diagnosis Diagnosis Type Effective Dates Health Status Clinical Service Informant MDD (major depressive disorder), recurrent episode, moderate Discharge Diagnosis 09/28/21 Vital Signs Most recent to oldest [Reference Range]: 1 Height 163 cm (09/28/21 11:13 AM) Weight 85.8 kg (09/28/21 11:13 AM) Oxygen Saturation [94-100 %] 98 % (09/28/21 11:13 AM) Pulse Rate [55-90 bpm] 83 bpm (09/28/21 11:13 AM) Body Mass Index [18.5-24.99] 32.29 *>HHI* (09/28/21 11:13 AM) Blood Pressure [90-138/55-84 mm Hg] 118/ 83mm Hg (09/28/21 11:13 AM) Respiratory Rate [16-30 br/min] 18 br/mi n (09/28/21 11:13 AM) Blood pressure sites Arm, left (09/28/21 11:13 AM) Weight Obtained Via Standing scale (09/28/21 11:13 AM) Social History Social History Type Response Smoking Status Never (less than 100 in lifetime) entered on: 05/25/19 Sex
--- OUTSIDE RECORDS SUMMARY | 2023-12-31 20:14 | XMS_ITS | Continuity of Care Document ---
Author Organization [facility] Address [address] [place] [address]- Care Team Providers Care Race Relations Adviser Name Role Phone Evens Jeffries DO Primary Care Physician [phone] [place] [facility] [place](s): 10/16/23 - 11/15/23 [facility] [address] [place] [address]- Allergies, Adverse Reactions, Alerts Substance Reaction Severity [...] Primary Care Member Role: PCP Address: Address: [address] [place] [address]- Care Team Related Persons Name: TERESSA EDWARDS Address: [address] [place] [address]
--- OUTSIDE RECORDS SUMMARY | 2023-12-31 20:14 | XMS_ITS | Continuity of Care Document ---
Author Organization [facility] Address [address] [place] [address]- Care Team Providers Care Boiler Shop Supervisor Name Role Phone Lela Nails MD Primary Care Physician Encounter [place] Date(s): 02/12/20 - 03/13/20 [facility] [address] [place] [address]- Allergies, Adverse Reactions, Alerts Substance Reaction Severity Status penicillin 1 Active 1rash Medications buPROPion 150 mg/24 hours (XL) oral tablet, extended release 1 tablet = 150 mg, By Mouth, Every 24 hours, # 90 tablet, 1 Refills, Maintenance, 02/15/20 11:25:00EST, ER Tablet, [facility] 5278, 1 tablet By Mouth [...]
--- OUTSIDE RECORDS SUMMARY | 2023-12-31 20:14 | XMS_ITS | Continuity of Care Document ---
Author Organization [facility] Address [address] [place] [address]- Care Team Providers Care Professional Driver Name Role Phone Lela Nails MD Primary Care Physician Encounter [facility] Date(s): 02/12/20 - 03/13/20 [facility] [address] [place] [address]- Allergies, Adverse Reactions, Alerts Substance Reaction Severity Status penicillin 1 Active 1rash Medications buPROPion 150 mg/24 hours (XL) oral tablet, extended release 1 tablet = 150 mg, By Mouth, Every 24 hours, # 90 tablet, 1 Refills, Maintenance, 02/15/20 11:25:00EST, ER Tablet, [facility] [...]
--- OUTSIDE RECORDS SUMMARY | 2023-12-31 20:14 | XMS_ITS | Continuity of Care Document ---
Author Organization [facility] Address [address] [place] [address]- Care Team Providers Care Rescue Instructor Name Role Phone Shakira Hobbs NP Primary Care Physician [id number] Date(s): 11/02/21 - 11/09/21 [facility] [address] [place] [address]- Encounter Diagnosis MDD (major depressive disorder), severe(Discharge Diagnosis) - 11/02/21 ADHD (attention deficit hyperactivity disorder), inattentive type(Discharge Diagnosis) - 11/02/21 Attending Physician: Shakira Hobbs NP Allergies, Adverse [...] 150 mg, By Mouth, Every 24 hours, take with 300mg for total of 450mg a day, # 30 tablet,1 Refills, Maintenance, 11/03/21 16:24:00 [facility] 5[facility], Partial fill upon patient request if the prescription is for a schedule II opioid... Start Date: 11/03/21 Status: Ordered buPROPion 300 mg/24 hours (XL) oral tablet, extended release 1 tablet = 300 mg, By Mouth, Daily, take with 150mg for total of 450mg a day, # 30 tablet, 1 Refills, Maintenance, 11/03/21 16:25:00 EDT, ER Tablet, [facility]278, Partial fill upon [...] Clinical Service Informant MDD (major depressive disorder), severe Discharge Diagnosis 11/02/21 ADHD (attention deficit hyperactivity disorder), inattentive type Discharge Diagnosis 11/02/21 Vital Signs Most recent to oldest [Reference Range]: 1 Height 163 cm (11/02/21 1:56 PM) Weight 87.8 kg (11/02/21 1:56 PM) Oxygen Saturation [94-100 %] 98 % (11/02/21 1:56 PM) Pulse Rate [55-90 bpm] 81 bpm (11/02/21 1:56 PM) Body Mass Index [18.5-24.99] 33.05 *>HHI* (11/02/21 1:56 PM) Blood Pressure [90-138/55-84 mm Hg] 121/ 84mm Hg (11/02/21 1:56 PM) Respiratory Rate [16-30 br/min] 16 br/mi n (11/02/21 1:56 PM) Blood pressure sites Arm, left (11/02/21 1:56 PM) Weight Obtained Via Standing scale (11/02/21 1:56 PM) Social History Social History Type Response Smoking Status Never (less than 100 in lifetime) entered on: 05/25/19 Sex Care Team Personnel Name: Shakira Hobbs NP Address: [address] [place] [address]
--- OUTSIDE RECORDS SUMMARY | 2023-12-31 20:14 | XMS_ITS | Continuity of Care Document ---
Author Organization [facility] Address [address] [place] [address]- Care Team Providers Care Sports Management Intern Name Role Phone Evens Jeffries DO Primary Care Physician [place] [facility] [place]18[place]23 - 11/17/23 [facility] [address] [place] [address]- Allergies, Adverse Reactions, Alerts Substance Reaction Severity [...] Primary Care Member Role: PCP Address: Address: [address] [place] [address]- Care Team Related Persons Name: TERESSA EDWARDS Address: home [address] [place] [address]
--- OUTSIDE RECORDS SUMMARY | 2023-12-31 20:14 | XMS_ITS | Continuity of Care Document ---
Author Organization [facility] Address [address] [place] [address]- Care Team Providers Care Roll Bucker Name Role Phone Jaqui DEAL, Lela Naqvi Primary Care Physician Encounter [facility] Date(s): 09/21/19 - 10/21/19 [facility] [address] [place] [address]- [facility] Allergies, Adverse Reactions, Alerts Substance Reaction Severity Status penicillin 1 Active 1rash Medications buPROPion 150 mg/24 hours (XL) oral tablet, extended release 1 tablet = 150 mg, By Mouth, Every 24 hours, # 90 tablet, 1 Refills, Maintenance, 05/25/19 8:49:00 EDT, ER Tablet, [facility], 1 tablet By Mouth [...]
--- OUTSIDE RECORDS SUMMARY | 2023-12-31 20:14 | XMS_ITS | Continuity of Care Document ---
Author Organization [facility] Address [address] [place] [address]- Care Team Providers Care Bladder Cleaner Name Role Phone Anjel KWOK, Shakira Herndon Primary Care Physician [place] [facility] [place] 11/23/21 - 11/30/21 [facility] [address] [place] [address]- Encounter Diagnosis ADHD (attention deficit hyperactivity disorder), inattentive type(Discharge Diagnosis) - 11/23/21 Anxiety(Discharge Diagnosis) - 11/23/21 Attending Physician: Anjel KWOK, Shakira Herndon Allergies, Adverse Reactions, Alerts Substance Reaction Severity [...] Refills, Maintenance, 11/03/21 16:25:00 EDT, ER Tablet, [facility] 7626, Partial fill upon patient request if the [...] 1 Refills, Maintenance, 11/23/21 15:16:00 EDT, Tablet, [facility] 5278, Partial fill upon patient [...] Effective Dates Health Status Clinical Service Informant Anxiety Discharge Diagnosis 11/23/21 ADHD (attention deficit hyperactivity disorder), inattentive type Discharge Diagnosis 11/23/21 Vital Signs Most recent to oldest [Reference Range]: 1 Height 163 cm (11/23/21 2:06 PM) Social History Social History Type Response Smoking Status Never (less than 100 in lifetime) entered on: 05/25/19 Sex Patient Care team information Personnel Name: Anjel KWOK, Shakira Herndon Address: Address: [address] [place] [address]
--- OUTSIDE RECORDS SUMMARY | 2023-12-31 20:14 | XMS_ITS | Continuity of Care Document ---
Author Organization [facility] Address [address] [place] [address]- Care Team Providers Care Attending Radiologist Name Role Phone Lela Nails MD Primary Care Physician [place] [facility] 05/24/20 - 06/23/20 [facility] [address] [place] [address]- Allergies, Adverse Reactions, Alerts Substance Reaction Severity Status penicillin 1 Active 1rash Medications buPROPion 150 mg/24 hours (XL) oral tablet, extended release 1 tablet = 150 mg, By Mouth, Every 24 hours, # 90 tablet, 1 Refills, Maintenance, 02/15/20 11:25:00EST, ER Tablet, [facility]278, 1 tablet By [...]
--- OUTSIDE RECORDS SUMMARY | 2023-12-31 20:14 | XMS_ITS | Continuity of Care Document ---
Author Organization [facility] Address [address] [place] [address]- Care Team Providers Care Public Health Engineer Name Role Phone Jaqui DEAL, Lela Naqvi Primary Care Physician [place] [facility] [place] Date(s): 10/14/19 - 11/13/19 [facility] [address] [place] [address]- [facility] Allergies, Adverse Reactions, Alerts Substance Reaction Severity Status penicillin 1 Active 1rash Medications buPROPion 150 mg/24 hours (XL) oral tablet, extended release 1 tablet = 150 mg, By Mouth, Every 24 hours, # 90 tablet, 1 Refills, Maintenance, 05/25/19 8:49:00 EDT, ER Tablet, [facility]278, 1 tablet By Mouth Every [...]
--- OUTSIDE RECORDS SUMMARY | 2023-12-31 20:14 | XMS_ITS | Continuity of Care Document ---
Author Organization [facility] Address [address] [place] [address]- Care Team Providers Care Cotton Farmworker Name Role Phone Evens Jeffries DO Primary Care Physician [phone] En[place] [facility] [place] [place] Date(s): 10/14/23 - 11/13/23 [facility] [address] [place] [address]- Allergies, Adverse Reactions, Alerts Substance Reaction Severity [...] Care Member Role: PCP Address: Address: [address] [place] [address]- Care Team Related Persons Name: TERESSA EDWARDS Address: [address] [place] [address]
--- OUTSIDE RECORDS SUMMARY | 2023-12-31 20:14 | XMS_ITS | Continuity of Care Document ---
Author Organization [facility] Address [address] [place] [address]- Care Team Providers Care Aircraft Instrument Engineer Name Role Phone Anjel KWOK, Shakira Naqvi Primary Care Physician [place] [facility] [place] 07[place]28[place] - 08/27/21 [facility] [address] [place] [address]- Allergies, Adverse Reactions, Alerts Substance Reaction Severity [...] Refills, Soft Stop, 09/18/20 14:39:00 EDT, Tablet, [facility], Partial fill upon patient request if the prescription is for a schedule II opioid drug., 163, cm, 09/18/20 14:12:00 EDT, Height, 85.... Start Date: 09/18/20 Status: Ordered buPROPion 150 mg/24 hours (XL) oral tablet, extended release 1 tablet = 150 mg, By Mouth, Every 24 hours, # 90 tablet, 3 Refills, Maintenance, 12/01/20 14:23:00EDT, ER Tablet, [facility], 1 tablet By Mouth Every 24 hours,x90 days, 163, cm, 12/01/2112:49:00 EDT, Height, 85.2, kg, 09/18/20 14:12:00 E... Start Date: 12/01/20 Stop Date: 11/26/21 Status: Ordered Diflucan 150 mg oral tablet 1 tablet = 150 mg, By Mouth, Once, May repeat in 3 days if continued symptoms, # 2 tablet, 0 Refills, Soft Stop, 08/17/20 19:02:00 EDT, Tablet, [facility]acy #[id number], Partial fill upon [...]
--- OUTSIDE RECORDS SUMMARY | 2023-12-31 20:14 | XMS_ITS | Continuity of Care Document ---
Author Organization [facility] Address [address] [place] [address]- Care Team Providers Care Community Services Manager Name Role Phone Jaqui DEAL, Lela Naqvi Primary Care Physician [place] [facility] [place] 09/25/19 - 10/25/19 [facility] [address] [place] [address]- [facility] Allergies, Adverse Reactions, Alerts Substance Reaction Severity Status penicillin 1 Active 1rash Medications buPROPion 150 mg/24 hours (XL) oral tablet, extended release 1 tablet = 150 mg, By Mouth, Every 24 hours, # 90 tablet, 1 Refills, Maintenance, 05/25/19 8:49:00 EDT, ER Tablet, [id number], 1 tablet By Mouth [...]
--- OUTSIDE RECORDS SUMMARY | 2023-12-31 20:14 | XMS_ITS | Continuity of Care Document ---
Author Organization [facility] Address [address] [place] [address]- Care Team Providers Care Print Production Coordinator Name Role Phone Lela Nails MD Primary Care Physician Encounter [place] Date(s): 10/06/20 - 11/05/20 [facility] [address] [place] [address]- Allergies, Adverse Reactions, Alerts Substance Reaction Severity [...] Refills, Soft Stop, 09/18/20 14:39:00 EDT, Tablet, [facility], Partial fill upon patient request if the prescription is for a schedule II opioid drug., 163, cm, 09/18/20 14:12:00 EDT, Height, 85.... Start Date: 09/18/20 Status: Ordered buPROPion 150 mg/24 hours (XL) oral tablet, extended release 1 tablet = 150 mg, By Mouth, Every 24 hours, # 90 tablet, 1 Refills, Maintenance, 10/13/20 7:42:00 EDT, ER Tablet, [facility], [...] Soft Stop, 08/17/20 19:02:00 EDT, Tablet, [facility]/pharmacy #[id number], Partial fill upon patient request if the [...]
--- OUTSIDE RECORDS SUMMARY | 2023-12-31 20:14 | XMS_ITS | Continuity of Care Document ---
Author Organization [facility] Address [address] [place] [address]- Care Team Providers Care Harp Regulator Name Role Phone Jaqui DEAL, Lela Naqvi Primary Care Physician En[place] [facility] [place] Date(s): 09/08/19 - 10/08/19 [facility] [address] [place] [address]- [facility] Allergies, Adverse Reactions, Alerts Substance Reaction Severity Status penicillin 1 Active 1rash Medications buPROPion 150 mg/24 hours (XL) oral tablet, extended release 1 tablet = 150 mg, By Mouth, Every 24 hours, # 90 tablet, 1 Refills, Maintenance, 05/25/19 8:49:00 EDT, ER Tablet, [facility]278, 1 tablet By [...]
--- OUTSIDE RECORDS SUMMARY | 2023-12-31 20:14 | XMS_ITS | Continuity of Care Document ---
Author Organization [facility] Address [address] [place] [address]- Care Team Providers Care Wood Miller Name Role Phone Jaqui DEAL, Lela Naqvi Primary Care Physician [place] [facility] [place] 12/01/20 - 12/08/20 [facility] [address] [place] [address]- Encounter Diagnosis Lethargic(Discharge Diagnosis) - 12/01/20 Vitamin D insufficiency(Discharge Diagnosis) - 12/01/20 Depression(Discharge Diagnosis) - 12/01/20 Attending Physician: Thony HEATING AND COOLING SYSTEMS ENGINEER, Mónica Crabtree Allergies, Adverse Reactions, Alerts Substance [...] Refills, Soft Stop, 09/18/20 14:39:00 EDT, Tablet, [facility], Partial fill upon patient request if the prescription is for a schedule II opioid drug., 163, cm, 09/18/20 14:12:00 EDT, Height, 85.... Start Date: 09/18/20 Status: Ordered buPROPion 150 mg/24 hours (XL) oral tablet, extended release 1 tablet = 150 mg, By Mouth, Every 24 hours, # 90 tablet, 3 Refills, Maintenance, 12/01/20 14:23:00EDT, ER Tablet, [facility], 1 tablet By Mouth Every 24 hours,x90 days, 163, cm, 12/01/2112:49:00 EDT, Height, 85.2, kg, 09/18/20 14:12:00 E... Start Date: 12/01/20 Stop Date: 11/26/21 Status: Ordered Diflucan 150 mg oral tablet 1 tablet = 150 mg, By Mouth, Once, May repeat in 3 days if continued symptoms, # 2 tablet, 0 Refills, Soft Stop, 08/17/20 19:02:00 EDT, Tablet, [facility]/pharmacy #[id number], Partial fill upon patient request [...] Effective Dates Health Status Clinical Service Informant Lethargic Discharge Diagnosis 12/01/20 Vitamin D insufficiency Discharge Diagnosis 12/01/20 Depression Discharge Diagnosis 12/01/20 Vital Signs Most recent to oldest [Reference Range]: 1 Height 163 cm (12/01/20 1:49 PM) Weight 88.3 kg (12/01/20 1:49 PM) Oxygen Saturation [94-100 %] 97 % (12/01/20 1:49 PM) Pulse Rate [55-90 bpm] 78 bpm (12/01/20 1:49 PM) Body Mass Index [18.5-24.99] 33.23 *>HHI* (12/01/20 1:49 PM) Blood Pressure [90-138/55-84 mm Hg] 115/ 83mm Hg (12/01/20 1:49 PM) Respiratory Rate [16-30 br/min] 20 br/mi n (12/01/20 1:49 PM) Blood pressure sites Arm, right (12/01/20 1:49 PM) Social History Social History Type Response Smoking Status Never (less than 100 in lifetime) entered on: 05/25/19 Sex
--- OUTSIDE RECORDS SUMMARY | 2023-12-31 20:14 | XMS_ITS | Continuity of Care Document ---
Author Organization [facility] Address [address] [place] [address]- Care Team Providers Care Petroleum Products Sales Representative Name Role Phone Shakira Hobbs NP Primary Care Physician [phone] Encounter [facility] [place] Date(s): 07/05/21 - 08/12/21 [facility] [address] [place] [address]- Attending Physician: Desiree Ochoa NP Referring Physician: Shakira Hobbs NP Allergies, Adverse Reactions, [...] Refills, Soft Stop, 09/18/20 14:39:00 EDT, Tablet, [facility], Partial fill upon [...] Refills, Soft Stop, 08/17/20 19:02:00 EDT, Tablet, [facility]/pharmacy #[id number], Partial fill upon patient [...]
--- OUTSIDE RECORDS SUMMARY | 2023-12-31 20:14 | XMS_ITS | Continuity of Care Document ---
Author Organization [facility] Address [address] [place] [address]- Care Team Providers Care Relay Operator Name Role Phone Evens Jeffries DO Primary Care Physician Encounter [facility] [place] Date(s): 10/16/23 - 11/15/23 [facility] [address] [place] [address]- Allergies, Adverse Reactions, Alerts Substance Reaction Severity [...] Primary Care Member Role: PCP Address: Address: [address] [place] [address]- Care Team Related Persons Name: TERESSA EDWARDS Address: home [address] [place] [address]
--- OUTSIDE RECORDS SUMMARY | 2023-12-31 20:14 | XMS_ITS | Continuity of Care Document ---
Author Organization [facility] Address [address] [place] [address]- Care Team Providers Care Handyperson Name Role Phone Jaqui DEAL, Lela Naqvi Primary Care Physician Encounter [facility] [place] Date(s): 02/15/20 - 03/16/20 [facility] [address] [place] [address]- Allergies, Adverse Reactions, Alerts Substance Reaction Severity Status penicillin 1 Active 1rash Medications buPROPion 150 mg/24 hours (XL) oral tablet, extended release 1 tablet = 150 mg, By Mouth, Every 24 hours, # 90 tablet, 1 Refills, Maintenance, 02/15/20 11:25:00EST, ER Tablet, [facility], 1 tablet By [...]
--- OUTSIDE RECORDS SUMMARY | 2023-12-31 20:14 | XMS_ITS | Continuity of Care Document ---
Author Organization [facility] Address [address] [place] [address]- Care Team Providers Care Donor Processor Name Role Phone Evens Jeffries DO Primary Care Physician [place] [facility] [place]23 - 11/29/23 [facility] [address] [place] [address]- Allergies, Adverse Reactions, Alerts Substance Reaction Severity [...] Primary Care Member Role: PCP Address: Address: [address] [place] [address]- Care Team Related Persons Name: TERESSA EDWARDS Address: home [address] [place] [address]
--- OUTSIDE RECORDS SUMMARY | 2023-12-31 20:14 | XMS_ITS | Continuity of Care Document ---
Author Organization [facility] Address [address] [place] [address]- Care Team Providers Care Improvement Coordinator Name Role Phone Anjel KWOK, Shakira Primary Care Physician [phone] [place] [facility] [place] 01/16/22 - 02/15/22 [facility] [address] [place] [address]- Allergies, Adverse Reactions, Alerts Substance Reaction Severity [...] Refills, Maintenance, 01/16/22 16:40:00 EST, ER Tablet, [facility], Partial fill upon patient request if the [...] 1 Refills, Maintenance, 11/23/21 15:16:00 EDT, Tablet, [facility], Partial fill upon patient [...] Team Personnel Name: Shakira Hobbs NP Position: [facility] PCO Associate Professional Member Role: PCP Address: Address: [address] [place] [address] [place] [address]- Care Team Related Persons Name: TERESSA EDWARDS Address: home [address] [place] [address]
--- OUTSIDE RECORDS SUMMARY | 2023-12-31 20:15 | XMS_ITS | Continuity of Care Document ---
Author Organization [facility] Address [address] [place] [address]- Care Team Providers Care Dethistler Operator Name Role Phone Evens Jeffries DO Primary Care Physician [phone] Encounter [facility] [place] Date(s): 06/05/22 - 07/05/22 [facility] [address] [place] [address]- Allergies, Adverse Reactions, Alerts Substance Reaction Severity [...] tablet, 0 Refills, Maintenance, 07/01/22 21:21:00 EDT, [facility], 163, cm, 06/19/22 8:51:00 [...] 0 Refills, Maintenance, 06/19/22 9:14:00 EDT, Tablet, [facility], Partial fill upon patient request if the [...] Care Physician Member Role: PCP Address: Address: [address] [place] [address]- Care Team Related Persons Name: EDWARDS TERESSA Address: home [address] [place] [address]
--- OUTSIDE RECORDS SUMMARY | 2023-12-31 20:15 | XMS_ITS | Continuity of Care Document ---
Author Organization [facility] Address [address] [facility] [place] [address]- Care Team Providers Care Plaster Whittler Name Role Phone Lela Nails MD Primary Care Physician Encounter 07/08/20 - 07/15/20 [facility] [address], [address] [place] [address]- Attending Physician: Gisela Polo MD Admitting Physician: Gisela Polo MD Referring Physician: Gisela Polo MD Allergies, Adverse Reactions, Alerts Substance Reaction [...] 1 Refills, Maintenance, 02/15/20 11:25:00EST, ER Tablet, [facility] 5271, 1 tablet By Mouth Every 24 hours,x90 [...]
--- OUTSIDE RECORDS SUMMARY | 2023-12-31 20:15 | XMS_ITS | Continuity of Care Document ---
Author Organization [facility] Address [address] [place] [address]- Care Team Providers Care Dimension Quarry Supervisor Name Role Phone Evens Jeffries DO Primary Care Physician Encounter [facility] [place] Date(s): 03/28/23 - 03/28/[address] [address]- Attending Physician: Nitza KWOK, Yoli Rossi Allergies, [...] tablet, 0 Refills, Maintenance, 10/23/22 11:25:00 EDT, [facility], 164.8, cm, 07/17/22 13:47:00 EDT, Height Start Date: 10/23/22 Status: Ordered buPROPion 300 mg/24 hours (XL) oral tablet, extended release 1 tablet, By Mouth, Daily, # 30 tablet, 0 Refills, Maintenance, 08/07/22 14:13:00 EDT, [facility], 164.8, cm, 07/17/22 13:47:00 EDT, [...] 0 Refills, Maintenance, 06/19/22 9:14:00 EDT, Tablet, [facility]278, Partial fill upon [...] Primary Care Member Role: PCP Address: Address: [address] [place] [address]- Care Team Related Persons Name: TERESSA EDWARDS Address: home [address] [place] [address]
--- OUTSIDE RECORDS SUMMARY | 2023-12-31 20:15 | XMS_ITS | Continuity of Care Document ---
Author Organization [facility] Address [address] [place] [address]- Care Team Providers Care Electronic Intelligence Officer Name Role Phone Anjel KWOK, Shakira Naqvi Primary Care Physician [phone] Encounter [facility] [place] Date(s): 08/16/21 - 09/15/21 [facility] [address] [place] [address]- Allergies, Adverse Reactions, Alerts Substance Reaction Severity [...] Refills, Soft Stop, 09/18/20 14:39:00 EDT, Tablet, [facility], Partial fill upon patient request if the prescription is for a schedule II opioid drug., 163, cm, 09/18/20 14:12:00 EDT, Height, 85.... Start Date: 09/18/20 Status: Ordered buPROPion 150 mg/24 hours (XL) oral tablet, extended release 1 tablet = 150 mg, By Mouth, Every 24 hours, # 90 tablet, 3 Refills, Maintenance, 12/01/20 14:23:00EDT, ER Tablet, [facility], 1 tablet By Mouth Every 24 hours,x90 days, 163, cm, 12/01/2112:49:00 EDT, Height, 85.2, kg, 09/18/20 14:12:00 E... Start Date: 12/01/20 Stop Date: 11/26/21 Status: Ordered Diflucan 150 mg oral tablet 1 tablet = 150 mg, By Mouth, Once, May repeat in 3 days if continued symptoms, # 2 tablet, 0 Refills, Soft Stop, 08/17/20 19:02:00 EDT, Tablet, [facility]/pharmacy #[id number], Partial fill upon patient request if [...]
--- OUTSIDE RECORDS SUMMARY | 2023-12-31 20:15 | XMS_ITS | Continuity of Care Document ---
Author Organization [facility] Address [address] [place] [address]- Care Team Providers Care Application Support Name Role Phone Evens Jeffries DO Primary Care Physician [place] [facility] [place] 07/[place]/23 [facility] [address] [place], [place] [address] Allergies, Adverse Reactions, Alerts Substance Reaction Severity [...] tablet, 0 Refills, Maintenance, 10/23/22 11:25:00 EDT, [facility], 164.8, cm, 07/17/22 13:47:00 EDT, Height Start Date: 10/23/22 Status: Ordered buPROPion 300 mg/24 hours (XL) oral tablet, extended release 1 tablet, By Mouth, Daily, # 30 tablet, 0 Refills, Maintenance, 08/07/22 14:13:00 EDT, [facility], 164.8, cm, 07/17/22 13:47:00 EDT, [...] 0 Refills, Maintenance, 06/19/22 9:14:00 EDT, Tablet, [facility], [...] Primary Care Member Role: PCP Address: Address: [address] [place] [address]- Care Team Related Persons Name: TERESSA EDWARDS Address: home [address] [place] [address]
--- OUTSIDE RECORDS SUMMARY | 2023-12-31 20:15 | XMS_ITS | Continuity of Care Document ---
Author Organization [facility] Address [address] [place] [address]- Care Team Providers Care Public Works Supervisor Name Role Phone Shakira Hobbs NP Primary Care Physician En[place] [facility] [place] Date(s): 11/23/21 - 12/23/21 [facility] [address] [place] [address]- Attending Physician: Nila Tiwari Admitting Physician: AdmNila soni Referring Physician: AdmtrNila Allergies, Adverse Reactions, Alerts [...] Refills, Maintenance, 11/03/21 16:25:00 EDT, ER Tablet, [facility]273, Partial fill upon patient request if the [...] 1 Refills, Maintenance, 11/23/21 15:16:00 EDT, Tablet, [facility], Partial fill upon patient request if the [...] Sex Patient Care team information Personnel Name: Shakira Hobbs NP Address: Address: [address] [place] [address] [address]
[2023-12-31 20:42] LABS: Influenza A PCR NEGATIVE (Negative); Influenza B PCR NEGATIVE (Negative); Resp Syncy Virus RNA Qual PCR NEGATIVE (Negative); SARS COV2 PCR INHOUSE NEGATIVE (Negative)
--- NOTE | 2023-12-31 21:18 | ED.ABDPAIN ---
HPI - Abdominal Pain General Chief Complaint: Abdominal Pain Stated Complaint: quest cyst Time Seen by Provider: 12/31/23 19:09 History of Present Illness HPI narrative: Patient is a 38-year-old female presents today with having lower abdominal pain that is associated with her menstruation. There is no fever no chills. Patient is from home. No nausea no vomiting. Positive generalized malaise. No pain on urination. Went to urgent care was told to come in for further evaluation of possible ovarian cysts. Positive aches question cough. Previously vaccinated for COVID. Does not think she is . No vaginal discharge other than bleeding patient is from home. Sexually active with 1 partner. Related Data Allergies Allergy/AdvReac Type Severity Reaction Status Date / Time Penicillins Allergy Rash Verified 12/31/23 13:34 Review of Systems Review of Systems Abdominal pain Yes all other systems are reviewed and are negative PMFSH Past Medical History Attestation statement: The following information was validated with the patient. Social History Social History Advance Directives: No Advance Directives Information Provided: No Do you have a plan to hurt others: No Plan Physical Exam ED Vital Signs: Vital Signs - 24 hr 12/31/23 13:29 12/31/23 19:49 Temperature 97.4 F 98.1 F Pulse Rate 91 108 H Respiratory Rate 16 20 Blood Pressure 147/80 H 126/87 Pulse Oximetry 99 99 Oxygen Delivery Method Room Air Room Air BMI result Body Mass Index 34.4 Appearance: Alert. Oriented X3. No acute distress. Eyes: Pupils equal, round and reactive to light. ENT: Pharynx normal. Neck: Normal inspection. Neck supple. No lymph nodes noted. No crepitus CVS: Normal heart rate and rhythm. Pulses normal. Normal S1 and S2 Respiratory: No respiratory distress. Breath sounds normal. No Wheezing. No rales Abdomen: Soft and nontender. No rigidity. No distention. good BS x4 Skin: Skin warm and dry. Normal skin color. Normal skin turgor. Extremities: No lower extremity edema. Neurovascular intact to all extremities. No Lacerations. No Rash Neuro: Oriented X 3. No motor deficit. No sensory deficit. Moving all extermities. No slurred speech Medical Decision Making Medical Decision Making MDM Narrative: Patient presented today with having abdominal pain. Urine showed no gross signs of infection. Patient's test was negative. No evidence for related issue. Had nonspecific weakness. COVID flu RSV were all negative. Patient's TSH was normal no evidence for hypo or hyperthyroid. Patient had menstrual pain along with having lower abdominal pain. An ultrasound was done. It showed no acute evidence of torsion. No evidence for ovarian cyst. Patient's LFTs are normal no evidence for biliary disease. Hemoglobin is 14 no evidence for anemia does have an elevated white count nonspecific. Repeat abdominal exam was soft nontender. GC chlamydia was sent. At this point will discharge patient home. [facility] patient's pain not consistent with appendicitis. She is well-appearing. Differential Diagnosis Differential Diagnoses: The differential diagnosis associated with the presentation includes Ovarian torsion, UTI Admission/Observation Consideration of admission/observation: Escalation of care including admission/observation considered Lab Data MDM Lab Attestation statement: I reviewed the patient's lab results. 12/31/23 14:07 12/31/23 14:07 Labs: Lab Results 12/31/23 12/31/23 12/31/23 Range/Units 14:07 19:25 20:00 WBC 13.8 H (4.8-10.8) X10*3/uL RBC 4.84 (4.20-5.50) X10*6/uL Hgb 13.9 (12.0-16.0) g/dl Hct 40.6 (37.0-47.0) % MCV 83.9 (80.0-98.0) fL MCH 28.7 (27.0-33.0) pg MCHC 34.2 (31.0-35.0) g/dl RDW 13.5 (11.0-16.0) % Plt Count 300 (160-400) X10*3/uL MPV 10.6 (9.4-12.3) fL Immature Gran % (Auto) 0.3 (0.0-0.4) % Neut % (Auto) 73.5 H (45-73) % Lymph % (Auto) 19.3 L (20-40) % Addison % (Auto) 5.8 (2-11) % Eos % (Auto) 0.7 (0-4) % Baso % (Auto) 0.4 (0-2) % Lymph # (Auto) 2.7 (1.2-4.9) X10*3/uL Addison # (Auto) 0.8 (0.1-1.2) X10*3/uL Eos # (Auto) 0.1 (0.0-0.4) X10*3/uL Baso # (Auto) 0.1 (0.0-0.2) X10*3/uL Abs Immat Gran (auto) 0.04 H (0.00-0.03) X10*3/uL Absolute Neuts (auto) 10.2 H (2.0-8.3) x10*3/uL Absolute Nucleated RBC 0.000 (0.0-0.012) X10*3/uL Nucleated RBC % (auto) 0.0 (0.0-0.2) /100WBC Sodium 136 (135-145) mmol/L Potassium 3.4 (3.3-5.1) mmol/L Chloride 105 (96-108) mmol/L Carbon Dioxide 22 (22-29) mmol/L Anion Gap 12 (12-20) BUN 11 (9-16) mg/dL Creatinine 0.83 (0.5-1.4) mg/dL Estim Creat Clear Calc 98.3 Estimated GFR > 60 Random Glucose 135 H (60-115) mg/dL Calcium 9.3 (8.4-10.2) mg/dL Total Bilirubin 1.5 H (0.0-1.0) mg/dL AST 17 (5-31) U/L ALT 12 (0-31) U/L Alkaline Phosphatase 89 (39-117) U/L Total Protein 8.1 H (6.5-8.0) g/dL Albumin 4.3 (3.5-5.0) g/dL TSH 1.62 (0.32-4.0) uIU/mL Beta HCG, Quant < 2 mIU/mL Urine Color Yellow Urine Appearance Clear Urine pH 6.0 (5.0-9.0) Ur Specific [place] 1.025 (1.005-1.025) Urine Protein 30 (1+) H (Neg-Trace) mg/dL Urine Glucose (UA) Negative (Negative) mg/dL Urine Ketones Negative (Negative) mg/dL Urine Blood Large (3+) H (Negative) Urine Nitrite Negative (Negative) Ur Leukocyte Esterase Small (1+) H (Negative) Urine RBC >20 H (0-2) /HPF Urine WBC 0-5 (0-5) /HPF Ur Squamous Epith Cells 3-5 (0-2) /HPF Urine Bacteria Trace (None Seen) Hyaline Casts 0-2 (0-2) /LPF Influenza Type A (PCR) NEGATIVE (Negative) Influenza Type B (PCR) NEGATIVE (Negative) RSV RNA Qual (PCR) NEGATIVE (Negative) SARS-CoV-2 RNA (RT-PCR) NEGATIVE (Negative) Radiology Impression Discussion of test interpretation with radiology: I have reviewed the radiologist's reading. Radiologist Impression: I reviewed radiology's reading of the ultrasound transvaginal Discharge Plan Discharge Clinical Impression: Menstrual cramp Patient Disposition: Home, Self-Care Instructions: Dysmenorrhea (ED) Referrals: Evnes Jeffries DO [Primary Care Provider] - 01/03/24 Print Language: Belarusian
[2023-12-31 23:13] VITALS: BP 135/86; PULSE 102; RESP 16; TEMP 36.9
[2024-01-01 12:09] LABS: CT PCR NOT DETECTED (Not Detect.); NG PCR NOT DETECTED (Not Detect.)
== END 2023-12-31 22:01 | disposition home or self-care (01) ==
PROVIDERS: Registered Nurse Emergency; Emergency Provider Emergency Medicine Emergency Medical Services; PCP Family Medicine
DX: N94.6 Dysmenorrhea, unspecified (principal); R10.32 Left lower quadrant pain; R53.81 Other malaise; Z03.818 Encounter for observation for suspected exposure to other biological agents ruled out; R53.1 Weakness
CPT/HCPCS: 0241U; 36415; 76830; 76856; 80053; 81001; 84443; 84702; 85025; 87086; 87491; 87591; 93975; 99283; 99284